=== PATIENT | male | born 1935 | race Caucasian/White ===

== ENCOUNTER 2017-07-03 15:55 | Inpatient (IN) | payer OTHER, MEDICARE ==
[2017-07-03] MEDS ORDERED: CEFAZOLIN 1 GM/DEXTROSE/50 ML BAG IV ONE (17:25)
[2017-07-03 17:36] LABS: % IMMATURE GRANULYOCYTES 0.3 % (0.0-1.1); ABSOLUTE IMMATURE GRANULOCYTES 0.04 10^3/uL (0.00-0.10); ADD DIFF? NO; ADD MORPH? NO; ADD SCAN? NO; ATYPICAL LYMPHOCYTE FLAG 10 (0-99); FRAGMENT RBC FLAG 0 (0-99); HEMATOCRIT 42.2 % (40.0-51.0); HEMOGLOBIN 14.2 g/dL (13.7-17.5); LEFT SHIFT FLG 10 (0-99); LIPEMIA HEMOLYSIS FLAG 80 (0-99); MEAN CELL HEMOGLOBIN 31.2 pg (27.9-34.1); MEAN CELL HEMOGLOBIN CONCENTR. 33.6 g/dL (32.4-36.7); MEAN CELL VOLUME 92.7 fL (81.5-99.8); MEAN PLATELET VOLUME 9.8 fL (8.7-11.7); PLATELET CLUMPS FLAG 0 (0-99); PLATELET COUNT 241 10^3/uL (150-400); RED BLOOD CELL COUNT 4.55 10^6/uL (4.40-6.38); RED CELL DISTRIBUTION WIDTH 15.5 % (11.5-15.2)
[2017-07-03 17:58] LABS: ANION GAP 15 mEq/L (8-16); CALCIUM 8.8 mg/dL (8.5-10.4); CARBON DIOXIDE 21 mEq/l (22-31); CHLORIDE 101 mEq/L (97-110); GLOMERULAR FILTRATION RATE > 60; GLUCOSE 107 mg/dL (70-100); POTASSIUM 3.8 mEq/L (3.5-5.2); SODIUM 137 mEq/L (134-144)
--- NOTE | 2017-07-03 18:12 | GCON ---
[f rep st] CONSULTATION INFECTIOUS DISEASE CONSULTATION. DATE OF CONSULTATION: 07/03/2017 REASON FOR CONSULTATION: Left lower extremity cellulitis. HISTORY OF PRESENT ILLNESS: An 82-year-old male followed regularly in the wound clinic for lower ex tremity venous insufficiency who presents today with increasing pain associated with his toes. In c linic he was found to have significant redness of his toes greater than baseline as well as erythema on his left lower extremity tracking to his groin. Further, he was found to be mildly febrile with a temperature of 100. The patient otherwise, though, was hemodynamically stable. Patient was faustin sferred to the emergency room for further evaluation. The patient was seen in consultation with Dr. Maryam Quinnoes, and it was recommended that patient be transferred to the emergency room for further m anagement of severe cellulitis. PAST MEDICAL HISTORY: BPH, hyperlipidemia, hypothyroidism, melanoma and venous insufficiency of the bilateral lower extremities. PAST SURGICAL HISTORY: Left knee surgery, lumbar surgery, tonsillectomy and adenoidectomy. FAMILY HISTORY: Positive for osteoporosis and sudden . SOCIAL HISTORY: He is . No alcohol. No illicit substances. No tobacco. He is retired. ALLERGIES: To penicillin, unclear reaction, and Cipro. MEDICATIONS: 1. Flomax 0.4 daily. 2. Levothyroxine 75 mcg daily. 3. Zocor 20 mg daily. 4. Gabapentin. 5. Percocet. 6. Oxycodone. 7. Protonix. 8. Tramadol. REVIEW OF SYSTEMS: A complete 10-point review of systems was performed and is negative except as me ntioned in HPI. PHYSICAL EXAMINATION: VITAL SIGNS: Blood pressure is 104/66, heart rate is 78, respiratory rate 16 , saturation 93% on room air. Pulse of 100. GENERAL: Patient is nontoxic appearing. Speaking grayson jeff but appears to be in moderate pain describing 10/10 on the pain scale. HEENT: Moist mucous me mbranes. No obvious dental abnormalities. CARDIOVASCULAR: Regular rate. CHEST: Clear to auscult ation bilaterally. ABDOMEN: Soft, nontender. EXTREMITIES: The patient had erythema of bilateral toes with multiple superficial ulcerations and erythema. His left lower extremity had a large wound on the medial ankle. Pictures were examined, that was 7.5 x 6.5 x 0.1. The patient had erythema i n a stocking distribution as well with sparing the upper calf but subsequently erythema present unde r and around the left knee, tracking up the medial thigh and into the groin. The area was swollen a nd warm to touch. He had palpable pulses. NEUROLOGIC: He is alert and oriented x4. Moving all 4 extremities equally. LABS: Pending at time of dictation. ASSESSMENT AND PLAN: This is a pleasant 82-year-old male with chronic venous insufficiency who pres ents with rapid onset of left lower extremity cellulitis most consistent with disease mediated by St reptococcus. Patient without a history of more resistant organisms and recently responded to Keflex with initial presentation in the Wound Care in 03/2017 with Keflex. I would recommend transfer to the emergency room, initiation of IV cefazolin 1 g IV q.8 h. Elevation of the left lower extremity. Collecting CBC, CMP, blood cultures and elevation of the left lower extremity. The patient with d ressing in place of the left lower extremity that was placed in Wound Care. That should be left in place. Thank you for this consultation. We will continue to follow on a daily basis. /[id number]/MODL
--- NOTE | 2017-07-03 18:14 | EDPHY ---
H & P Time Seen by Provider: 07/03/17 17:06 HPI/ROS: CHIEF COMPLAINT: Left leg cellulitis HISTORY OF PRESENT ILLNESS: 82 year old male followed in the Wound Clinic by Dr. Maryam Quinones presents for evaluation of swollen painful wounds on his toes and left lower extremity warmth , erythema, and streaking. He has ongoing open wounds in bilateral lower extremities and is followed at the Wound Care Clinic. He lives at [facility], and nursing staff noted his bandages needed to be changed several times a day rather than once every other day because of excessive drainage, and recommended he have revaluation at the clinic. Today he developed erythema, warmth and tenderness of the knee and left thigh. He was sent to the emergency department for IV antibiotics and admission. He is followed by infectious disease. No chills, vomiting, shortness of breath, chest pain, or other associated symptoms. REVIEW OF SYSTEMS: Constitutional: No fever, no chills Eyes: No visual changes ENT: No sore throat Respiratory: No cough, no shortness of breath Cardiac: No chest pain Gastrointestinal: No nausea, no vomiting, no abdominal pain Genitourinary: no dysuria Neurological: No headache Psychiatric: No anxiety Past Medical/Surgical History: Hypothyroid, Lower extremity venous insufficiency, Chronic back pain, Hyperlipidemia, BPH, Osteoarthritis of hip and shoulder, Colon cancer, Back surgery L4-L5 Social History: Lives in [place]. No alcohol, tobacco, or drug use. Retired. Smoking Status: Former smoker Physical Exam: General Appearance: Alert, no distress Eyes: Pupils equal and round, no conjunctival pallor or injection ENT, Mouth: Mucous membranes moist Neck: Normal inspection Respiratory: Lungs are clear to auscultation Cardiovascular: Regular rate and rhythm Gastrointestinal: Abdomen is soft and non- tender Neurological: A&O, nonfocal, normal gait Skin: Warm and dry, no rash Extremities: Left leg: Dressing in place from midfoot to proximal lower leg. Above dressing, erythema is noted to knee and medial aspect of inner thigh. Erythema of visible aspect of first, second, and third toes. Right leg: Dressing in place, no erythema warmth or tenderness proximally. Psychiatric: Mood and affect normal Constitutional: Initial Vital Signs Temperature (C) 36.8 C 07/03/17 16:02 Heart Rate 86 07/03/17 16:02 Respiratory Rate 17 07/03/17 16:02 Blood Pressure 97/67 L 07/03/17 16:02 O2 Sat (%) 92 07/03/17 16:02 O2 Delivery Mode Room Air Allergies/Adverse Reactions: Penicillins Allergy (Unknown, Verified 07/03/17 16:01) Home Medications: Medication Instructions Recorded Levothyroxine Sodium [Synthroid] 75 mcg PO DAILY@02/16/13 Tamsulosin HCl [Flomax 0.4 MG (*)] 0.4 mg PO DAILY@02/16/13 Methadone HCl [Methadone 5 mg (*)] 5 mg PO BID@07/03/17 Acetaminophen [Tylenol 325mg (*)] 650 mg PO Q4HRS PRN 07/04/17 Aspirin EC [Aspirin EC 81 mg (*)] 81 mg PO DAILY@07/04/17 Clindamycin HCl [Clindamycin] 600 mg PO AD PRN 07/04/17 Furosemide [Lasix 40 MG (*)] 40 mg PO DAILY@07/04/17 Herbals/Supplements -Info Only 1 each PO DAILY 07/04/17 Magnesium Hydroxide [Milk of 30 ml PO DAILY PRN 07/04/17 Magnesia] Pantoprazole Sodium [Protonix 40mg 40 mg PO DAILY@07/04/17 (*)] Polyethylene Glycol 3350 [Miralax 17 gm PO DAILY PRN 07/04/17 17 gm (*)] Potassium Cl [Klor-Con 20 meq (*)] 20 meq PO DAILY@07/04/17 Sennosides/Docusate Sodium 1 each PO BID PRN 07/04/17 [Senna-Docusate Sodium Tablet] Medical Decision Making ED Course/Re-evaluation: This patient presents with left lower extremity cellulitis likely secondary to a skin tear on his left lower leg. The dressing was not removed, as he was just seen at wound care clinic and a dressing was placed. Ancef 1 g IV given after blood cultures drawn. The patient was stable throughout any does not meet SIRS criteria. Plan to admit for management of cellulitis. Dr. Blood accepts admission. Differential Diagnosis: Differential diagnosis includes though it is not limited to fracture, dislocation, tendon disruption, neurovascular compromise. - Data Points Laboratory Results: Laboratory Results 07/03/17 17:25 07/03/17 17:25 Microbiology Results: MICROBIOLOGY 07/03/17 17:42 Blood Blood Culture - Preliminary 07/03/17 17:25 Blood Blood Culture - Preliminary Medications Given: Aspirin Buffered (Aspirin Ec) 81 mg PO DAILY@08 [facility] Stop: 01/01/18 07:59 Last Admin: 07/05/17 08:33 Dose: 81 mg Enoxaparin Sodium (Lovenox) 40 mg SC DAILY [facility] Stop: 12/31/17 08:59 Last Admin: 07/05/17 08:33 Dose: 40 mg Furosemide (Lasix) 40 mg PO DAILY@08 [facility] Stop: 01/01/18 07:59 Last Admin: 07/05/17 08:34 Dose: 40 mg Cefazolin Sodium/Dextrose (Ancef 1 Gm (Premix)) 50 mls @ 200 mls/hr IV Q8H [facility] PRN Reason: Protocol Stop: 08/02/17 17:59 Last Admin: 07/05/17 10:17 Dose: 50 mls Levothyroxine Sodium (Synthroid) 75 mcg PO DAILY@06 [facility] Stop: 01/01/18 05:59 Last Admin: 07/05/17 05:39 Dose: 75 mcg Methadone HCl (Methadone Hcl) 5 mg PO BID@ [facility] Stop: 07/14/17 19:59 Last Admin: 07/05/17 08:33 Dose: 5 mg Morphine Sulfate (Morphine) 1 - 2 mg IVP Q4HRS PRN PRN Reason: Pain, Severe Unable to Take PO Stop: 07/14/17 00:07 Last Admin: 07/04/17 08:11 Dose: 2 mg Oxycodone HCl (Oxycodone Ir) 5 - 10 mg PO Q4 PRN PRN Reason: Pain, Severe Able to Take PO Stop: 07/13/17 19:09 Last Admin: 07/05/17 00:44 Dose: 10 mg Pantoprazole Sodium (Protonix) 40 mg PO DAILY@08 [facility] Stop: 01/01/18 07:59 Last Admin: 07/05/17 08:34 Dose: 40 mg Potassium Chloride (Klor-Con) 20 meq PO DAILY@08 [facility] Stop: 01/01/18 07:59 Last Admin: 07/05/17 08:34 Dose: 20 meq Senna/Docusate Sodium (Senokot-S) 1 - 2 tab PO BID [facility] PRN Reason: Protocol Stop: 12/30/17 20:59 Last Admin: 07/05/17 08:34 Dose: 2 tab Tamsulosin HCl (Flomax) 0.4 mg PO DAILY@08 [facility] Stop: 01/01/18 07:59 Last Admin: 07/05/17 08:34 Dose: 0.4 mg Discontinued Medications Acetaminophen (Tylenol) 650 mg PO EDNOW ONE Stop: 07/03/17 19:22 Last Admin: 07/03/17 19:24 Dose: 650 mg Cefazolin Sodium/Dextrose (Ancef 1 Gm (Premix)) 50 mls @ 200 mls/hr IV Q8HRS [facility] PRN Reason: Protocol Stop: 08/02/17 17:59 Last Admin: 07/03/17 18:08 Dose: 50 mls Oxycodone HCl (Oxycodone Ir) 5 - 10 mg PO Q6 PRN PRN Reason: Pain, Severe Able to Take PO Stop: 07/04/17 00:09 Last Admin: 07/03/17 21:51 Dose: 10 mg Departure - Departure Disposition: [facility] In[facility] Acute Clinical Impression: Cellulitis Qualifiers: Site of cellulitis: extremity Site of cellulitis of extremity: lower extremity Laterality: left Qualified Code(s): L03.116 - Cellulitis of left lower limb Condition: Fair Report Scribed for: Jodee Giles Report Scribed by: Eli Simmons Date of Report: 07/03/17 Time of Report: 19:10 Physician Review and Approval Statement: 07/03/17 19:10 Portions of this note were transcribed by a medical photographer. I personally performed a history, physical exam, medical decision making, and confirmed accuracy of information the transcribed note.
[2017-07-03] MEDS ORDERED: oxyCODONE IR 5 MG TAB PO PRN (19:10)
[2017-07-03] MEDS ORDERED: ACETAMINOPHEN 325 MG TAB PO PRN (19:10)
[2017-07-03] MEDS ORDERED: ONDANSETRON 4 MG/2 ML VIAL IVP PRN (19:10)
[2017-07-03] MEDS ORDERED: BISACODYL 10 MG SUPP PR PRN (19:11)
[2017-07-03] MEDS ORDERED: LACTULOSE 20 GM/30 ML UDCUP PO PRN (19:11)
[2017-07-03] MEDS ORDERED: POLYETHYLENE GLYCOL 3350 17 GM PKT PO PRN (19:11)
[2017-07-03] MEDS ORDERED: MAGNESIUM HYDROXIDE 30 ML UDCUP PO PRN (19:11)
[2017-07-03] MEDS ORDERED: ACETAMINOPHEN 325 MG TAB PO ONE (19:21)
--- NOTE | 2017-07-03 19:27 | GHP ---
[f rep st] HISTORY AND PHYSICAL DATE OF ADMISSION: 07/03/2017 CHIEF COMPLAINT: Left lower extremity redness. HISTORY OF PRESENT ILLNESS: This is an 82-year-old male, who is followed regularly at the wound cli [facility] for lower extremity venous insufficiency, who presented today with worsening pain in his left to es as well as redness and swelling of his left knee to his groin. He denies any fevers, but was fou nd to have a temperature of 100 degrees Fahrenheit. He was seen earlier today at the wound clinic, and had also seen Dr. Ramirez before being transferred to the emergency department for further manage ment. PAST MEDICAL HISTORY: 1. BPH. 2. Hyperlipidemia. 3. Melanoma. 4. Venous insufficiency. 5. Hypothyroidism. PAST SURGICAL HISTORY: 1. Left knee surgery. 2. Lumbar back surgery. 3. Tonsillectomy and adenoidectomy. HOME MEDICATIONS: Reviewed. Refer to [facility] for details. ALLERGIES: Penicillin and Cipro. SOCIAL HISTORY: He is and lives at [facility]. He denies any alcohol, tobacco , or illicit drug use. FAMILY HISTORY: Significant for osteoporosis and sudden . REVIEW OF SYSTEMS: Comprehensive 10-point review of systems was done and is negative, except for as mentioned in the HPI. PHYSICAL EXAM: VITAL SIGNS: Blood pressure 130/79, pulse of 74, respiratory rate 18, O2 saturation 94% on room air, temperature 38. GENERAL: In no acute distress. HEAD: Normocephalic, atraumatic . EYES: PERRLA. Sclerae anicteric. MOUTH: Moist mucous membranes. NECK: Supple. No lymphaden opathy. CARDIOVASCULAR: S1-S2. No JVD. No lower extremity edema. PULMONARY: Lungs are clear. No wheezes, rales, or rhonchi. ABDOMEN: Soft, nontender, nondistended. No guarding or rebound ten derness. Normoactive bowel sounds. EXTREMITIES: No clubbing or cyanosis. NEURO: Cranial nerves 2-12 grossly intact. No focal motor or sensory deficits. SKIN: There is erythema over his left to es. There is a clean, dry dressing in place, that I did not take down, over his foot and lower leg. He does have some erythema at his calf tracking up towards his knee and into his groin. He does n ot have pain with passive or active range of motion of the knee. DIAGNOSTICS: WBC is 11.46, hemoglobin 14.2, hematocrit 42.2, platelets 241. Venous lactic acid 1.6 , sodium 137, potassium 3.8, chloride 101, CO2 21, BUN 16, creatinine 1, glucose 107. ASSESSMENT: This is an 82-year-old male, presenting with: 1. Left lower extremity cellulitis. 2. History of chronic venous insufficiency. PLAN: The patient will be admitted to the medical-surgical floor, where he will be continued on cef azolin 1 g IV q.8 hours as well as elevation of his left lower extremity. ID will be consulted to destiney currie while he is in the hospital. The patient will be carefully monitored for signs and symp toms of severe sepsis and septic shock. The patient is high risk for VTE and will be placed on low molecular weight heparin while in the [facility] pital. /[id number]/MODL
[2017-07-03] MEDS: SENNOSIDES/DOCUSATE SODIUM TAB PO SCH (21:51)
[2017-07-04] MEDS: oxyCODONE IR 5 MG TAB PO PRN ×2 (01:19→08:11)
[2017-07-04 05:06] LABS: % IMMATURE GRANULYOCYTES 0.4 % (0.0-1.1); ABSOLUTE IMMATURE GRANULOCYTES 0.03 10^3/uL (0.00-0.10); ADD DIFF? NO; ADD MORPH? NO; ADD SCAN? NO; ATYPICAL LYMPHOCYTE FLAG 10 (0-99); FRAGMENT RBC FLAG 0 (0-99); HEMATOCRIT 35.8 % (40.0-51.0); HEMOGLOBIN 11.8 g/dL (13.7-17.5); LEFT SHIFT FLG 0 (0-99); LIPEMIA HEMOLYSIS FLAG 80 (0-99); MEAN CELL HEMOGLOBIN 30.8 pg (27.9-34.1); MEAN CELL VOLUME 93.5 fL (81.5-99.8); MEAN PLATELET VOLUME 9.9 fL (8.7-11.7); PLATELET CLUMPS FLAG 0 (0-99); PLATELET COUNT 204 10^3/uL (150-400); RED BLOOD CELL COUNT 3.83 10^6/uL (4.40-6.38); RED CELL DISTRIBUTION WIDTH 15.3 % (11.5-15.2)
[2017-07-04 05:25] LABS: ANION GAP 7 mEq/L (8-16); CALCIUM 8.2 mg/dL (8.5-10.4); CARBON DIOXIDE 25 mEq/l (22-31); CHLORIDE 103 mEq/L (97-110); CREATININE 0.9 mg/dL (0.7-1.3); GLOMERULAR FILTRATION RATE > 60; GLUCOSE 93 mg/dL (70-100); POTASSIUM 3.7 mEq/L (3.5-5.2); SODIUM 135 mEq/L (134-144)
[2017-07-04] MEDS: ENOXAPARIN 40 MG/0.4 ML SYR SC SCH (10:13)
[2017-07-04] MEDS: SENNOSIDES/DOCUSATE SODIUM TAB PO SCH ×2 (10:14→21:33)
--- NOTE | 2017-07-04 10:29 | HOSPPROG ---
Hospitalist Progress Note Assessment/Plan: #Acute Left LE cellulitis: -cont Cefazolin -ID is following #Chronic bilateral LE insufficiency -dressing in place -will obtain wound consult #HLD: #Hypothyroidism Plan: -Cefazolin -ID to see -Wound care -Pain mgmt -f/u BCx -Lovenox for DVT proph -complete med rec once meds have been confirmed. Not available as of 929 this morning -Dispo: cont inpatient Subjective: Feels better. Legs are wrapped. First encounter with this patient. No CP or SOB. Daughter at bedside. Objective: Vital Signs Temp Pulse Resp BP Pulse Ox 36.8 C 54 L 18 123/71 H 94 07/04/17 07:53 07/04/17 07:53 07/04/17 07:53 07/04/17 07:53 07/04/17 07:53 Laboratory Results 07/04/17 04:44 07/04/17 04:44 07/03/17 07/04/17 07/05/17 05:59 05:59 05:59 Intake Total 825 Balance 825 - Physical Exam Constitutional: no apparent distress, appears nourished, not in pain Eyes: PERRL Ears, Nose, Mouth, Throat: moist mucous membranes, hearing normal, ears appear normal, no oral mucosal ulcers Cardiovascular: regular rate and rhythym, No JVD Respiratory: no respiratory distress, clear to auscultation Gastrointestinal: normoactive bowel sounds, soft, non-tender abdomen, no palpable masses Skin: warm Neurologic: AAOx3, No facial droop Psychiatric: interacting appropriately, not anxious, not encephalopathic, thought process linear ICD10 Worksheet Patient Problems: Problems Problem Status Onset Cellulitis Acute Anemia, iron deficiency Acute
[2017-07-04] MEDS ORDERED: POLYETHYLENE GLYCOL 3350 17 GM PKT PO PRN (10:30)
[2017-07-04] MEDS ORDERED: SENNOSIDES/DOCUSATE SODIUM TAB PO PRN (10:30)
--- NOTE | 2017-07-04 15:56 | PCMIDPN ---
Assessment/Plan: Assessment/Plan: * Left lower extremity cellulitis with chronic venous insufficiency and ulceration: Significant improvement in cellulitis with IV cefazolin. Still with some patchy erythema over thigh and below knee primarily consistent with venous insufficiency. Small pustule over base of great toe which resolved when prepped with Hibiclens (cultures could not be obtained). Continue cefazolin. Emphasized elevation of left lower extremity. Continued compression of left lower extremity. Anticipate potential change to oral antibiotic therapy tomorrow based on clinical improvement. 07/04/17 15:52 Subjective: Patient with decreased erythema over left thigh. Son notes looks significantly improved. Objective: Vital Signs Temp Pulse Resp BP Pulse Ox 36.8 C 71 16 120/73 91 L 07/04/17 12:12 07/04/17 12:12 07/04/17 12:12 07/04/17 12:12 07/04/17 12:12 Laboratory Results 07/04/17 04:44 07/04/17 04:44 07/03/17 07/04/17 07/05/17 05:59 05:59 05:59 Intake Total 825 Balance 825 Cefazolin # 1 Blood cultures x2 pending - Physical Exam General Appearance: alert, no apparent distress EENT: No scleral icterus Extremities: inflammation (Left thigh medially with patchy erythema; minimal induration; nontender; erythema below knee consistent with venous insufficiency ; crusting between several toes with ulceration; small pustule below base of great toe which when cleaned with Hibiclens unroofed itself) Lymphatic: other (No left thigh lymphangitis) ICD10 Worksheet Patient Problems: Problems Problem Status Onset Cellulitis Acute Anemia, iron deficiency Acute
--- NOTE | 2017-07-04 20:29 | SOAPPROG ---
SOAP Progress Note Assessment/Plan: Assessment: 82 yo with chronic venous insufficiency s/p ablation Wound on left medial leg and cellulitus - MUCH improved from yesterday Increased pain at bilateral toes with wounds Wound care TOSHIA/PVR if will tolerate Could have mixed arterial and venous disease I will not see daily but am available this weekend if needed Plan: 07/04/17 20:27 7 Objective: Vital Signs Temp Pulse Resp BP Pulse Ox 36.7 C 59 L 16 140/81 H 95 07/04/17 19:56 07/04/17 19:56 07/04/17 19:56 07/04/17 19:56 07/04/17 19:56 Laboratory Results 07/04/17 04:44 07/04/17 04:44 07/03/17 07/04/17 07/05/17 05:59 05:59 05:59 Intake Total 825 700 Output Total 2 Balance 825 748 ICD10 Worksheet Patient Problems: Problems Problem Status Onset Cellulitis Acute Anemia, iron deficiency Acute
[2017-07-04] MEDS: METHADONE HCL 5 MG TAB PO SCH (21:33)
[2017-07-05] MEDS: oxyCODONE IR 5 MG TAB PO PRN ×2 (00:44→23:41)
[2017-07-05] MEDS: LEVOTHYROXINE 75 MCG TAB PO SCH (05:39)
[2017-07-05 05:51] LABS: ANION GAP 12 mEq/L (8-16); CALCIUM 8.4 mg/dL (8.5-10.4); CARBON DIOXIDE 23 mEq/l (22-31); CHLORIDE 102 mEq/L (97-110); CREATININE 0.8 mg/dL (0.7-1.3); GLOMERULAR FILTRATION RATE > 60; GLUCOSE 81 mg/dL (70-100); POTASSIUM 3.8 mEq/L (3.5-5.2); SODIUM 137 mEq/L (134-144)
[2017-07-05] MEDS: METHADONE HCL 5 MG TAB PO SCH ×2 (08:33→21:31)
[2017-07-05] MEDS: ENOXAPARIN 40 MG/0.4 ML SYR SC SCH (08:33)
[2017-07-05] MEDS: ASPIRIN EC 81 MG TAB PO SCH (08:33)
[2017-07-05] MEDS: TAMSULOSIN HCL 0.4 MG CAP PO SCH (08:34)
[2017-07-05] MEDS: SENNOSIDES/DOCUSATE SODIUM TAB PO SCH ×2 (08:34→21:31)
[2017-07-05] MEDS: POTASSIUM CL 20 MEQ TAB PO SCH (08:34)
[2017-07-05] MEDS: FUROSEMIDE 40 MG TAB PO SCH (08:34)
[2017-07-05] MEDS: PANTOPRAZOLE SODIUM 40 MG TAB PO SCH (08:34)
[2017-07-05] MEDS ORDERED: Herbals/Supplements -Info Only PO SCH (09:00)
--- NOTE | 2017-07-05 11:12 | HOSPPROG ---
Hospitalist Progress Note Assessment/Plan: 82 yo male with hx of chronic venous insufficiency admitted for acute LLE cellulitis involving the Left thigh down and worsening bilateral extremities wounds. On IV Cefazolin with some improvement. Toe wounds appear to be impairing his ability to ambulate, but he and his son report that this is chronic. #Acute Left LE cellulitis: -cont Cefazolin -ID is following. May transition to oral abx soon #Chronic bilateral LE insufficiency with bilateral wounds -dressing in place -surgery and wound following #HLD: #Hypothyroidism Plan: -Cont Cefazolin -ID reccs -Wound care -Pain mgmt -f/u BCx: no growth thus far -Lasix daily -Lovenox for DVT proph -PT -Dispo: cont inpatient, possible discharge soon. Once medically stable, wants to discharge back to assisted living. D/W pt and son who is present at bedside. Subjective: Feels better. Still weak, but this is near baseline. No CP or SOB. NO N/V Objective: Vital Signs Temp Pulse Resp BP Pulse Ox 36.6 C 69 18 121/80 H 93 07/05/17 07:29 07/05/17 07:29 07/05/17 07:29 07/05/17 07:29 07/05/17 07:29 Laboratory Results 07/04/17 04:44 07/05/17 04:52 07/04/17 07/05/17 07/06/17 05:59 05:59 05:59 Intake Total 825 800 Output Total 202 Balance 825 598 - Physical Exam Constitutional: no apparent distress, not in pain, chronically ill appearing Eyes: PERRL, anicteric sclera, EOMI Ears, Nose, Mouth, Throat: moist mucous membranes, No dry mucous membranes Cardiovascular: regular rate and rhythym, No JVD Respiratory: no respiratory distress, clear to auscultation Gastrointestinal: normoactive bowel sounds, soft, non-tender abdomen Skin: warm, other (erythema around left medial thigh appears better, dressing in place bilaterally calf and down) Musculoskeletal: generalized weakness Neurologic: AAOx3 Psychiatric: interacting appropriately, not anxious, not encephalopathic ICD10 Worksheet Patient Problems: Problems Problem Status Onset Cellulitis Acute Anemia, iron deficiency Acute
--- NOTE | 2017-07-05 13:04 | PCMIDPN ---
Assessment/Plan: LLE cellulitis - portal of entry chronic LE wounds. Suspect streptococcus. Significant improvement today. --awaiting arterial studies --DC tomorrow on Keflex 500mg PO TID, 7 day supply --continued cefazolin IV overnight --elevation Micro 07/03 blood cx (2) NGTD Subjective: patient without c/o today no pain no diarrhea Objective: Vital Signs Temp Pulse Resp BP Pulse Ox 36.3 C 72 16 115/78 93 07/05/17 11:47 07/05/17 11:47 07/05/17 11:47 07/05/17 11:47 07/05/17 11:47 Laboratory Results 07/04/17 04:44 07/05/17 04:52 07/04/17 07/05/17 07/06/17 05:59 05:59 05:59 Intake Total 825 800 Output Total 202 Balance 825 598 - Physical Exam General Appearance: alert, no apparent distress Respiratory: No accessory muscle use Neck: supple Cardiac/Chest: regular rate, rhythm Extremities: erythema (LLE stocking distribution and faint erythema remains tracking up medial thigh) Skin: No rash Neuro/Psych: alert, normal mood/affect, oriented x 3 - Time Spent With Patient Time Spent with Patient: greater than 35 minutes Time Spent with Patient: Greater than 35 minutes spent on this patients care, greater than 50% of time spent counseling, educating, and coordinating care regarding the above mentioned plan. ICD10 Worksheet Patient Problems: Problems Problem Status Onset Cellulitis Acute Anemia, iron deficiency Acute
--- NOTE | 2017-07-05 16:44 | SOAPPROG ---
SOAP Progress Note Assessment/Plan: Assessment: 82 yo with chronic venous insufficiency s/p ablation Wound on left medial leg and cellulitus - MUCH improved from yesterday Increased pain at bilateral toes with wounds Wound care TOSHIA and PVR surprisingly good. TOSHIA 1.1 on each side and decent waveforms. Doubt any arterial contribution Can DC from my standpoint and follow up in wound healing center next week I will not see daily but am available this weekend if needed Plan: 07/04/17 20:27 7 07/05/17 16:42 Objective: Vital Signs Temp Pulse Resp BP Pulse Ox 36.4 C 62 15 121/79 H 94 07/05/17 15:43 07/05/17 15:43 07/05/17 15:43 07/05/17 15:43 07/05/17 15:43 Laboratory Results 07/04/17 04:44 07/05/17 04:52 07/04/17 07/05/17 07/06/17 05:59 05:59 05:59 Intake Total 825 800 Output Total 202 Balance 825 598 ICD10 Worksheet Patient Problems: Problems Problem Status Onset Cellulitis Acute Anemia, iron deficiency Acute
--- NOTE | 2017-07-05 17:58 | WOCRNPDOC ---
WOCRN Advanced Assessment Note - Skin Integrity Problem, Advanced Assess Left Lower Leg Dressing Type: Open to Air Exudate Amount: None Exudate Characteristic(s): None Integumentary Issue Intervention: Dressing Applied (Optilock dressing x2, 2- layer compression wrap) Elana Wound Tissue: Erythema, Swollen, Venous Dermatitis Elana Wound Swelling: Mild Wound Bed Color: Red Wound Bed Constitution: Smooth Tissue (non-granulating) Wound Edges: Irregular Skin Integrity Problem Comment: Two wounds noted to medial aspect of LLE. Proximally, there is a healing skin tear w/ epithelial islands scattered throughout wound bed. Presently site is not exudative. Distally, there is a venous stasis wound w/ a dry, non-granulating wound bed. No apparent necrosis in either wound. There is mild edema throughout this extremity, +2 DP pulse. Venous dermatitis throughout, extending to foot, consistent w/ venous stasis. After discussion w/ Dr. Ramirez, decision was made to apply the 2-layer compression wrap that patient is accustomed to in the outpatient setting, with the understanding that nursing and physicians will not remove this dressing for the remainder of patient's stay. Per the [facility], he has a follow up appointment for next Thursday 07/12. Applied two Optilock dressings over both wounds, and applied 2-layer wrap w/ assistance of information technology advisor Paavo. Right Toe Dressing Type: Open to Air Exudate Amount: None Exudate Characteristic(s): None Integumentary Issue Intervention: Dressing Applied Elana Wound Tissue: Erythema, Swollen, Dry Elana Wound Swelling: Mild Wound Bed Color: Red Wound Bed Constitution: Smooth Tissue (red, non-granulating), Dried Exudate Skin Integrity Problem Comment: Wounds noted to dorsal aspect of patient's R 3rd and 4th toes, w/ dry, non-granulating tissue. Moderate swelling and erythema noted in both these digits, and patient c/o intense pain to these and neighboring toes. Applied foam dressing to protect wounds, and wrapped lightly w / Lizette. Patient has f/u appt. w/ [facility] next Saturday. Left Second Toe Dressing Type: Open to Air Exudate Amount: None Exudate Characteristic(s): None Integumentary Issue Intervention: Dressing Applied Elana Wound Tissue: Erythema, Swollen Elana Wound Swelling: Moderate Wound Bed Color: Red Wound Bed Constitution: Smooth Tissue (red, non-granulating) Site Odor: None Skin Integrity Problem Comment: Linear, dry, wound bed noted to dorsal aspect of L second toe. Venous dermatitis throughout this extremity, extending up through elana-wound tissue. Site is very tender, though patient reports that pain is diminishing since admission. Protective foam dressing placed over wound , secure w/ Lizette over forefront of the L foot.
[2017-07-06] MEDS: oxyCODONE IR 5 MG TAB PO PRN (01:48)
[2017-07-06] MEDS: LEVOTHYROXINE 75 MCG TAB PO SCH (04:37)
[2017-07-06 07:48] VITALS: BP 130/78; PULSE 62; RESP 16; TEMP 97.6; O2SAT 91
[2017-07-06] MEDS: ENOXAPARIN 40 MG/0.4 ML SYR SC SCH (08:05)
[2017-07-06] MEDS: ASPIRIN EC 81 MG TAB PO SCH (08:05)
[2017-07-06] MEDS: POTASSIUM CL 20 MEQ TAB PO SCH (08:06)
[2017-07-06] MEDS: FUROSEMIDE 40 MG TAB PO SCH (08:07)
[2017-07-06] MEDS: METHADONE HCL 5 MG TAB PO SCH (08:07)
[2017-07-06] MEDS: TAMSULOSIN HCL 0.4 MG CAP PO SCH (08:07)
[2017-07-06] MEDS: PANTOPRAZOLE SODIUM 40 MG TAB PO SCH (08:07)
[2017-07-06] MEDS: SENNOSIDES/DOCUSATE SODIUM TAB PO SCH (08:12)
--- NOTE | 2017-07-06 08:32 | PCMIDPN ---
Assessment/Plan: LLE cellulitis/lymphangitis - portal of entry chronic LE wounds. Suspect streptococcus. Complete resolution of erythema on LUE --DC today on Keflex 500mg PO TID, 7 day supply --do not remove LLE dressing --patient will follow up in wound healing center [facility] 07/03 blood cx (2) NGTD Subjective: feeling well, no c/o Objective: Vital Signs Temp Pulse Resp BP Pulse Ox 36.4 C 62 16 130/78 H 91 L 07/06/17 07:47 07/06/17 07:47 07/06/17 07:47 07/06/17 07:47 07/06/17 07:47 Laboratory Results 07/04/17 04:44 07/05/17 04:52 07/05/17 07/06/17 07/07/17 05:59 05:59 05:59 Intake Total 800 400 Output Total 202 400 Balance 598 0 PE Nontoxic sitting in bed NAD Skin no rash B LE less swelling than admit LLE dressing in place lower leg; upper leg complete resolution of lymphangitis ICD10 Worksheet Patient Problems: Problems Problem Status Onset Cellulitis Acute Anemia, iron deficiency Acute
--- NOTE | 2017-07-06 09:54 | PDIAF ---
- Diagnosis Code Status: Do Not Resuscitate - Medication Management Discharge Medications: Medications to Continue on Transfer Levothyroxine Sodium [Synthroid] 75 mcg PO DAILY@02/16/13 [Last Taken ] Tamsulosin HCl [Flomax 0.4 MG (*)] 0.4 mg PO DAILY@02/16/13 [Last Taken 02/22] Methadone HCl [Methadone 5 mg (*)] 5 mg PO BID@07/03/17 [Last Taken Unknown] Acetaminophen [Tylenol 325mg (*)] 650 mg PO Q4HRS PRN 07/04/17 [Last Taken Unknown] Aspirin EC [Aspirin EC 81 mg (*)] 81 mg PO DAILY@07/04/17 [Last Taken Unknown ] Furosemide [Lasix 40 MG (*)] 40 mg PO DAILY@07/04/17 [Last Taken Unknown] Herbals/Supplements -Info Only 1 each PO DAILY 07/04/17 [Last Taken Unknown] Magnesium Hydroxide [Milk of Magnesia] 30 ml PO DAILY PRN 07/04/17 [Last Taken Unknown] Pantoprazole Sodium [Protonix 40mg (*)] 40 mg PO DAILY@07/04/17 [Last Taken Unknown] Polyethylene Glycol 3350 [Miralax 17 gm (*)] 17 gm PO DAILY PRN 07/04/17 [Last Taken Unknown] Potassium Cl [Klor-Con 20 meq (*)] 20 meq PO DAILY@07/04/17 [Last Taken Unknown] Sennosides/Docusate Sodium [Senna-Docusate Sodium Tablet] 1 each PO BID PRN 09/10 [Last Taken Unknown] Cephalexin [Keflex (*)] 500 mg PO TID #21 cap 07/06/17 [Last Taken Unknown] Discharge Medications: Refer to the Discharge Home Medication list for PRN reason. - Orders Services needed: Home Care, Registered Nurse, Physical Therapy, Occupational Therapy Home Care Face to Face: I certify that this patient was under my care and that I had the required [id number] encounter meeting the encounter requirements on the discharge day. My findings support the fact that the patient is homebound as defined in CMS Chapter 7 Medicare Benefits Manual 30.1.1, The condition of the patient is such that there exists a normal inability to leave home and consequently, leaving home would require a considerable and taxing effort. Diet Recommendation: no restrictions on diet Wound Care Instructions: Dressing change for 2nd,3rd, and 4th toes on R foot, and 2n toe on L foot: to be done every 3 days and as needed. 1) cleanse w/ NS and gauze. 2) gently apply skin prep to yodit-wound skin on 3rd and 4th toes on R foot; yodit-wound on 2nd toe on L foot. 3) cover wounds w/ Mepilex foam dressing (or similar), sticky side facing down. 4) secure w/ Kerlix or Lizette over the forefront of foot. Patient has a 2-layer compression wrap applied to LLE, w/ two Optilock dressings underneath, covering wounds. This wrap is to be left in place until patient's next outpatient wound clinic appointment on Saturday , 07/12. May put black, nylon stocking over compression wrap when patient DC's; it is located in the 3M Lite compression wrap box in patient's room. VAIBHAV Pepper - Follow Up Care Current Providers and Referrals: NURYS STYLES [Other] - As per Instructions
--- NOTE | 2017-07-06 18:05 | GDS ---
[f rep st] DISCHARGE SUMMARY DISCHARGE DIAGNOSES: 1. Acute left lower extremity cellulitis. 2. Lower extremity venous insufficiency, status post venous ablation. 3. Lower extremity venous insufficiency wounds. HISTORY: The patient is an 82-year-old male, followed regularly at the [facility] for lower extremity venous insufficiency. He presented with redness and swelling of his toes, knees to groin. He was diagnosed with cellulitis, and treated with IV antibiotics. Portal of entry is his chronic lower extremity wounds. Strep is the most likely causative organism. A complete resolution of alfonso thema prior to discharge. Infectious Disease recommended Keflex 500 mg p.o. three times daily for 7 days. At discharge he will follow up closely with the [facility] Care [facility] regarding his lower extrem ity wound care management. DISCHARGE MEDICATIONS: Please see computer record for full detailed list. NEW MEDICATIONS: Keflex 500 mg p.o. three times daily x7 days. ADDITIONAL DISCHARGE INSTRUCTIONS: 1. [facility] refer to [facility] for specific wound care instructions at discharge. 2. Outpatient wound clinic appointment on July 12. 3. Home Health arranged for PT, OT, VNS. Greater than 30 minutes of time was spent arranging this discharge. The patient was seen and examin ed by me on the day of discharge. /[id number]/MODL
== END 2017-07-06 13:07 | disposition home health service (06) | DRG 603 ==
LOC: F1N 20:02
PROVIDERS: ADMIT Family Medicine; ATTEND Family Medicine
DX: L03.116 Cellulitis of left lower limb (principal); I87.2 Venous insufficiency (chronic) (peripheral); E03.9 Hypothyroidism, unspecified; M54.9 Dorsalgia, unspecified; M16.10 Unilateral primary osteoarthritis, unspecified hip; M19.019 Primary osteoarthritis, unspecified shoulder; E78.5 Hyperlipidemia, unspecified; Z85.038 Personal history of other malignant neoplasm of large intestine; Z87.891 Personal history of nicotine dependence
CPT/HCPCS: 96374; 97116-GP; 97161-GP; 97166-GO; 97535-GO; G8978-GP-CI; G8979-GP-CI; G8980-GP-CI; G8987-GO-CI; G8988-GO-CI; G8989-GO-CI; J0690; J1650

== ENCOUNTER → 2017-08-26 | Outpatient (CLI) | payer OTHER, MEDICARE | LOC: FIMAGING 16:12 | PROVIDERS: ATTEND Internal Medicine Infectious Disease | DX: I82.812 Embolism and thrombosis of superficial veins of left lower extremity (principal); R60.0 Localized edema; R59.0 Localized enlarged lymph nodes ==

== ENCOUNTER 2018-03-02 20:12 | Inpatient (IN) | payer OTHER, MEDICARE ==
--- NOTE | 2018-03-02 20:39 | EDPHY ---
General - History Smoking Status: Former smoker Time Seen by Provider: 03/02/18 20:23 Narrative: CHIEF COMPLAINT: Fever, lower extremity wounds HISTORY OF PRESENT ILLNESS: Patient presents with son with reports of fever. Patient began to feel ill earlier this evening at his assisted living facility. He has no cough, sore throat, congestion, but he did have a runny nose over the past 2 days. No chest pain or shortness of breath. No abdominal pain or urinary complaints. Their concern is he has complicated lower extremities skin changes, and he is undergoing weekly wound care. The assisted living facility was concern for infection. He has no trauma or injury. He was reportedly febrile at 101.8 just prior to arrival. No other associated complaints or modifying factors. REVIEW OF SYSTEMS: Ten systems reviewed and are negative unless otherwise noted in the HPI PCP: Dr. Feliciano SPECIALISTS: [facility] PAST MEDICAL HISTORY: Hypothyroid, chronic back pain, dyslipidemia, osteoarthritis, colon cancer, chronic lower extremity wounds PAST SURGICAL HISTORY: Orthopedic and spine surgeries remotely SOCIAL HISTORY: Never smoker. No drug or alcohol use. 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 No wheezing or crackles. Cardiovascular: Tachycardic rate. Regular them. Gastrointestinal: Abdomen is soft and nontender. No tympany rigidity. Back: non-tender, no bony abnormalities Neurological: GCS 15. A&O, nonfocal, normal gait Skin: Warm and dry, chronic skin changes of lower extremities consistent with venous stasis and pressure/stasis ulcers. No obvious cellulitis or abscess. Extremities: Minimal tenderness of the areas of wound lower extremities. Range of motion of the lower extremities symmetric. Range of motion upper extremities symmetric. Psychiatric: Mood and affect normal DIFFERENTIAL DIAGNOSES: Including but not limited to sepsis, cellulitis, MRSA, staph infection, pneumonia, influenza, bronchitis, pneumonitis, UTI MDM: 8:35 p.m. Fever with no specific system complaints. Mild body aches but no cough, sore throat, urinary complaints, chest pain or abdominal pain. Patient is not febrile here but his temperature is slightly elevated. His heart rate is 105. Respiratory rate is 20. His blood pressure is stable 120/83. Patient does have chronic wounds of the lower extremities bilaterally. His assisted living facility was concerned that these may be infected. I have ordered laboratory studies including blood cultures, lactic acid, chest x-ray, flu swab. I have notified Dr. Hatfield. 8:40 p.m. Case discussed with Dr. Quinones for the chronic wounds. She will evaluate the patient. 8:[address] Quinones has evaluated the patient. Please see her consult note for further details. She feels that infection is unlikely of his lower extremity wound. 9:10 p.m. Patient's lactic acid is elevated 2.7. Dr. Hatfield notified, and we have reviewed the chest x-ray together. I do not appreciate any obvious pneumonia. Still no obvious source for infection at this time. 9:40 p.m. Patient has been evaluated by Dr. Hatfield personally. At this point he was febrile during examination. We do not yet have source but there is possibility of lower extremities skin infection due to his chronic wounds. Dr. Hatfield is order antibiotics for this. We will provide 2 L IV fluid resuscitation recheck his lactic acid. 9:45 p.m. This case discussed with hospitalist Dr. Ramirez He will admit the patient to his service. Admitted in stable condition. Urinalysis pending. Influenza test 10:00 p.m. Influenza test is negative. I have added a Respiratory pathogen panel to the existing swab 10:15 p.m. Urinalysis is negative for infection. He still receiving his IV fluid resuscitation and the repeat lactic acid is being drawn at this time. 10:40 p.m. Repeat lactic acid has improved to 2.0. At this time he is ready for transportation to the floor. Continue IV fluid resuscitation. He is admitted in stable condition. SUPERVISION: Patient was evaluated and examined in conjunction with my secondary supervising physician as documented. We have both examined the patient. (Lloyd Urias) Medical Decision Making: Independent physician evaluation: I evaluated and participated in the management of the patient. I also evaluated the patient independently. My co-signature indicates that I have reviewed this chart and I agree with the findings and plan of care as documented. My personal H&P findings include: The patient presents the ED for evaluation of a 1 day history of fever and shaking chills. The patient does have a history of chronic lower extremity cellulitis and ulcers. He is under the care of the [facility] Care Clinic. He has not been on recent antibiotics. The patient reports he has had a slight dry nonproductive cough. He denies any abdominal pain, vomiting or diarrhea. The patient denies dysuria or prior history of UTIs. Physical exam: General Appearance: Alert, elderly male, no acute distress Eyes: Pupils equal and round no pallor or injection ENT, Mouth: Mucous membranes moist Respiratory: Faint rhonchi bilateral lung bases Cardiovascular: Tachycardic Gastrointestinal: Abdomen is soft and nontender, no masses, bowel sounds normal Neurological: 5/5 strength all 4 extremities Skin: Cellulitic changes and chronic stasis/ulcers noted to bilateral lower extremities Musculoskeletal: Neck is supple nontender Extremities: symmetrical, full range of motion Psychiatric: Patient is oriented X 3, there is no agitation ED course: Patient's temperature is 38.1 degrees on my check. The patient is tachycardic and has leukocytosis. The patient does have lower extremity cellulitis and ulcerations. Given his history of fever and shaking chills I am concerned about the possibility of bacteremia from a skin source. The patient did have blood cultures x2 obtained. He received 2 L of normal saline. The patient was given 1 g of vancomycin and ceftriaxone for cellulitis/possible bacteremia. Patient does meet criteria for severe sepsis with an elevated venous lactate of 2.7 + leukocytosis+fever +tachycardia. A repeat venous lactate has been ordered in the emergency department. The patient will be admitted to the hospitalist service. (Ezequiel Hatfield) - Diagnostics Imaging Results: Imaging Impressions Chest X-Ray 03/02/18 20:39 Impression: 1. Moderate hiatal hernia. 2. No definite pneumonia. - Objective Vital Signs: Initial Vital Signs Temperature (C) 37.3 C 03/02/18 20:14 Heart Rate 105 H 03/02/18 20:14 Respiratory Rate 20 03/02/18 20:14 Blood Pressure 121/83 H 03/02/18 20:14 O2 Sat (%) 94 03/02/18 20:14 O2 Delivery Mode Room Air Allergies/Adverse Reactions: Penicillins Allergy (Unknown, Verified 03/02/18 20:14) Home Medications: Medication Instructions Recorded Levothyroxine Sodium [Synthroid] 75 mcg PO DAILY@06 03/25/13 Tamsulosin HCl [Flomax 0.4 MG (*)] 0.4 mg PO DAILY@02/16/13 Acetaminophen [Tylenol 325mg (*)] 650 mg PO Q4HRS PRN 07/04/17 Aspirin EC [Aspirin EC 81 mg (*)] 81 mg PO DAILY@07/04/17 Furosemide [Lasix 40 MG (*)] 40 mg PO DAILY@07/04/17 Herbals/Supplements -Info Only 1 each PO DAILY 07/04/17 Magnesium Hydroxide [Milk of 30 ml PO DAILY PRN 07/04/17 Magnesia] Pantoprazole Sodium [Protonix 40mg 40 mg PO DAILY@07/04/17 (*)] Polyethylene Glycol 3350 [Miralax 17 gm PO DAILY PRN 07/04/17 17 gm (*)] Potassium Cl [Klor-Con 20 meq (*)] 20 meq PO DAILY@07/04/17 Sennosides/Docusate Sodium 1 each PO BID PRN 07/04/17 [Senna-Docusate Sodium Tablet] Diclofenac Sodium 1% [Voltaren Gel 2 gm TP BID PRN 03/02/18 (*)] Ibuprofen [Motrin (*)] 200 mg PO Q8HRS PRN 03/02/18 Nystatin [Mycostatin Cream (RX)] 1 patricia TP TID PRN 03/02/18 Polyethylene Glycol 3350 [Miralax 17 gm PO Q2D 03/02/18 17 gm (*)] Triamcinolone 0.1% [Triamcinolone 1 patricia TP BID PRN 03/02/18 0.1% Cream (*)] Laboratory Results: Laboratory Results 03/02/18 20:43 03/02/18 20:43 03/02/18 03/02/18 03/02/18 21:30 20:43 20:43 WBC RBC Hgb Hct MCV MCH MCHC RDW Plt Count MPV Neut % (Auto) Lymph % (Auto) Ford % (Auto) Eos % (Auto) Baso % (Auto) Nucleat RBC Rel Count Absolute Neuts (auto) Absolute Lymphs (auto) Absolute Monos (auto) Absolute Eos (auto) Absolute Basos (auto) Absolute Nucleated RBC Immature Gran % Immature Gran # PT INR APTT VBG Lactic Acid Sodium Potassium Chloride Carbon Dioxide Anion Gap BUN Creatinine Estimated GFR Glucose Calcium Total Bilirubin 0.8 mg/dL mg/dL (0.1-1.4) Conjugated Bilirubin 0.6 mg/dL H mg/dL (0.0-0.5) Unconjugated Bilirubin 0.2 mg/dL mg/dL (0.0-1.1) AST 17 IU/L IU/L (17-59) ALT 29 IU/L IU/L (21-72) Alkaline Phosphatase 64 IU/L IU/L (38-126) Total Protein 7.5 g/dL g/dL (6.3-8.2) Albumin 4.2 g/dL g/dL (3.5-5.0) Procalcitonin 0.22 ng/mL H ng/mL (0.02-0.10) Urine Color YELLOW Urine Appearance CLEAR Urine pH 5.0 (5.0-7.5) Ur Specific [place] 1.019 (1.002-1.030) Urine Protein NEGATIVE (NEGATIVE) Urine Ketones NEGATIVE (NEGATIVE) Urine Blood 1+ H (NEGATIVE) Urine Nitrate NEGATIVE (NEGATIVE) Urine Bilirubin NEGATIVE (NEGATIVE) Urine Urobilinogen 4.0 EU H EU (0.2-1.0) Ur Leukocyte Esterase NEGATIVE (NEGATIVE) Urine RBC 3-5 /hpf H /hpf (0-3) Urine WBC Not Reported Ur Epithelial Cells TRACE /lpf /lpf (NONE-1+) Hyaline Casts 1-5 /lpf /lpf (0-1) Urine Mucus TRACE /lpf /lpf (NONE-1+) Urine Glucose NEGATIVE (NEGATIVE) Nasal Influenza A PCR Nasal Influenza B PCR 03/02/18 03/02/18 03/02/18 20:43 20:43 20:43 WBC RBC Hgb Hct MCV MCH MCHC RDW Plt Count MPV Neut % (Auto) Lymph % (Auto) Ford % (Auto) Eos % (Auto) Baso % (Auto) Nucleat RBC Rel Count Absolute Neuts (auto) Absolute Lymphs (auto) Absolute Monos (auto) Absolute Eos (auto) Absolute Basos (auto) Absolute Nucleated RBC Immature Gran % Immature Gran # PT INR APTT VBG Lactic Acid 2.7 mmol/L H mmol/L (0.7-2.1) Sodium 139 mEq/L mEq/L (135-145) Potassium 4.1 mEq/L mEq/L (3.5-5.2) Chloride 102 mEq/L mEq/L (97-110) Carbon Dioxide 23 mEq/l mEq/l (22-31) Anion Gap 14 mEq/L mEq/L (8-16) BUN 24 mg/dL H mg/dL (7-23) Creatinine 1.1 mg/dL mg/dL (0.7-1.3) Estimated GFR > 60 Glucose 110 mg/dL H mg/dL (70-100) Calcium 9.0 mg/dL mg/dL (8.5-10.4) Total Bilirubin 0.8 mg/dL mg/dL (0.1-1.4) Conjugated Bilirubin Unconjugated Bilirubin AST ALT Alkaline Phosphatase Total Protein Albumin Procalcitonin Urine Color Urine Appearance Urine pH Ur Specific [place] Urine Protein Urine Ketones Urine Blood Urine Nitrate Urine Bilirubin Urine Urobilinogen Ur Leukocyte Esterase Urine RBC Urine WBC Ur Epithelial Cells Hyaline Casts Urine Mucus Urine Glucose Nasal Influenza A PCR NEGATIVE FOR FLU A (NEGATIVE) Nasal Influenza B PCR NEGATIVE FOR FLU B (NEGATIVE) 03/02/18 03/02/18 20:43 20:43 WBC 14.46 10^3/uL H 10^3/uL (3.80-9.50) RBC 4.81 10^6/uL 10^6/uL (4.40-6.38) Hgb 14.9 g/dL g/dL (13.7-17.5) Hct 44.0 % % (40.0-51.0) MCV 91.5 fL fL (81.5-99.8) MCH 31.0 pg pg (27.9-34.1) MCHC 33.9 g/dL g/dL (32.4-36.7) RDW 15.8 % H % (11.5-15.2) Plt Count 249 10^3/uL 10^3/uL (150-400) MPV 9.6 fL fL (8.7-11.7) Neut % (Auto) 89.5 % H % (39.3-74.2) Lymph % (Auto) 4.3 % L % (15.0-45.0) Ford % (Auto) 4.8 % % (4.5-13.0) Eos % (Auto) 0.2 % L % (0.6-7.6) Baso % (Auto) 0.4 % % (0.3-1.7) Nucleat RBC Rel Count 0.0 % % (0.0-0.2) Absolute Neuts (auto) 12.94 10^3/uL H 10^3/uL (1.70-6.50) Absolute Lymphs (auto) 0.62 10^3/uL L 10^3/uL (1.00-3.00) Absolute Monos (auto) 0.70 10^3/uL 10^3/uL (0.30-0.80) Absolute Eos (auto) 0.03 10^3/uL 10^3/uL (0.03-0.40) Absolute Basos (auto) 0.06 10^3/uL 10^3/uL (0.02-0.10) Absolute Nucleated RBC 0.00 10^3/uL 10^3/uL (0-0.01) Immature Gran % 0.8 % % (0.0-1.1) Immature Gran # 0.11 10^3/uL H 10^3/uL (0.00-0.10) PT 14.1 SEC SEC (12.0-15.0) INR 1.07 (0.83-1.16) APTT 31.5 SEC SEC (23.0-38.0) VBG Lactic Acid Sodium Potassium Chloride Carbon Dioxide Anion Gap BUN Creatinine Estimated GFR Glucose Calcium Total Bilirubin Conjugated Bilirubin Unconjugated Bilirubin AST ALT Alkaline Phosphatase Total Protein Albumin Procalcitonin Urine Color Urine Appearance Urine pH Ur Specific [place] Urine Protein Urine Ketones Urine Blood Urine Nitrate Urine Bilirubin Urine Urobilinogen Ur Leukocyte Esterase Urine RBC Urine WBC Ur Epithelial Cells Hyaline Casts Urine Mucus Urine Glucose Nasal Influenza A PCR Nasal Influenza B PCR Medications Given: Discontinued Medications Sodium Chloride (Ns) 1,000 mls @ 0 mls/hr IV EDNOW ONE; Wide Open PRN Reason: Protocol Stop: 03/02/18 21:29 Last Admin: 03/02/18 21:45 Dose: 1,000 mls Sodium Chloride (Ns) 1,000 mls @ 0 mls/hr IV EDNOW ONE; Wide Open PRN Reason: Protocol Stop: 03/02/18 21:32 Last Admin: 03/02/18 21:46 Dose: 1,000 mls Ceftriaxone Sodium/Dextrose (Rocephin 1 Gm (Premix)) 50 mls @ 100 mls/hr IV EDNOW ONE PRN Reason: Protocol Stop: 03/02/18 22:07 Last Admin: 03/02/18 21:49 Dose: 50 mls Vancomycin/Sodium Chloride (Vancomycin 1 Gm (Premix)) 250 mls @ 250 mls/hr IV EDNOW ONE PRN Reason: Protocol Stop: 03/02/18 22:38 Last Admin: 03/02/18 22:18 Dose: 250 mls Departure - Departure Disposition: [facility] Inpatient Acute Clinical Impression: Sepsis Qualifiers: Sepsis type: sepsis due to unspecified organism Qualified Code(s): A41.9 - Sepsis, unspecified organism Fever Qualifiers: Fever type: unspecified Qualified Code(s): R50.9 - Fever, unspecified Condition: Good
[2018-03-02 20:57] LABS: PLATELET COUNT 249 10^3/uL (150-400)
[2018-03-02 21:10] LABS: INR 1.07 (0.83-1.16); PROTIME(PATIENT) 14.1 SEC (12.0-15.0)
[2018-03-02] MEDS ORDERED: NS 1,000 ML IV ONE ×2 (21:28→21:31)
[2018-03-02] MEDS ORDERED: VANCOMYCIN HCL/NORMAL SALINE 250 ML IV ONE (21:39)
--- NOTE | 2018-03-02 21:54 | GCON ---
[f rep st] CONSULTATION [facility] NOTE. DATE OF CONSULTATION: 03/02/2018 REQUESTING PHYSICIAN: Ezequiel Hatfield MD. CHIEF COMPLAINT: Fever. HISTORY OF PRESENT ILLNESS: The patient is an 82-year-old man with bilateral lower extremity venous insufficiency with stasis dermatitis and ulceration. He is seen in the Wound Clinic on Fridays and has 2 layer wraps placed. He has Mepilex transfer placed over some of the wounds and Hydrofera Blue transfer on the deeper wound on his left medial ankle. Boaz noted today that he was not feeling as well. They took his temperature and he was febrile. He was brought into the hospital. PAST MEDICAL HISTORY: Hypothyroidism, dyslipidemia, osteoarthritis, history of colon cancer. PAST SURGICAL HISTORY: Ortho and spine surgery. SOCIAL HISTORY: Does not use tobacco. 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 FAMILY HISTORY: Noncontributory. ROS: Weakness, upper respiratory symptoms, malaise, some shortness of breath, otherwise 10 point review of systems is negative PHYSICAL EXAM: VITAL SIGNS: 37.3, 105, 121/83, 20, 94%. GENERAL: Pleasant, sitting up in bed, appears weak. Son at bedside. SKIN: His lower extremity wounds appear stable. There is hemosiderin deposition and skin changes consistent with stasis dermatitis. He has small ulcers. There are no signs of bright erythema, certainly no ascending infection. There was a slight green tinge on the Aquacel foam. Assessment and Plan: No obvious wound infection They can place Kerlix back over the wound and consult inpatient wound over the next 24-48 hours. Our service will be on standby. /[id number]/MODL MTDD
[2018-03-02] MEDS ORDERED: ONDANSETRON DISINTEGRATING 4 MG TAB PO PRN (22:12)
[2018-03-02] MEDS ORDERED: ACETAMINOPHEN 325 MG TAB PO PRN (22:12)
[2018-03-02] MEDS ORDERED: ONDANSETRON 4 MG/2 ML VIAL IVP PRN (22:12)
--- NOTE | 2018-03-02 23:20 | PDGENHP ---
History and Physical - Chief Complaint Fever - History of Present Illness 82 yo M w/ hx of venous insufficiency and chronic LE wounds presents with fever. Patient began to feel cold at this nursing facility today so he had his vitals taken. At this point it was found that he was febrile. Fever was confirmed in ED with Tmax of 38.1. He and his son feel that his LE wounds have actually been improving over the last several weeks with regular wound care. Patient denies all localizing symptoms. He does admit to dry cough but he states this is chronic. He specifically denies vomiting, abdominal pain, diarrhea, dysuria, and shortness of breath. History Information - Allergies/Home Medication List Allergies/Adverse Reactions: Penicillins Allergy (Unknown, Verified 03/02/18 20:14) Home Medications: Levothyroxine Sodium [Synthroid] 75 mcg PO DAILY@02/16/13 [Last Taken ] Tamsulosin HCl [Flomax 0.4 MG (*)] 0.4 mg PO DAILY@02/16/13 [Last Taken 02/22] Acetaminophen [Tylenol 325mg (*)] 650 mg PO Q4HRS PRN 07/04/17 [Last Taken Unknown] Aspirin EC [Aspirin EC 81 mg (*)] 81 mg PO DAILY@07/04/17 [Last Taken Unknown ] Furosemide [Lasix 40 MG (*)] 40 mg PO DAILY@07/04/17 [Last Taken Unknown] Herbals/Supplements -Info Only 1 each PO DAILY 07/04/17 [Last Taken Unknown] Magnesium Hydroxide [Milk of Magnesia] 30 ml PO DAILY PRN 07/04/17 [Last Taken Unknown] Pantoprazole Sodium [Protonix 40mg (*)] 40 mg PO DAILY@07/04/17 [Last Taken Unknown] Polyethylene Glycol 3350 [Miralax 17 gm (*)] 17 gm PO DAILY PRN 07/04/17 [Last Taken Unknown] Potassium Cl [Klor-Con 20 meq (*)] 20 meq PO DAILY@07/04/17 [Last Taken Unknown] Sennosides/Docusate Sodium [Senna-Docusate Sodium Tablet] 1 each PO BID PRN 09/10 [Last Taken Unknown] Diclofenac Sodium 1% [Voltaren Gel (*)] 2 gm TP BID PRN 03/02/18 [Last Taken Unknown] Ibuprofen [Motrin (*)] 200 mg PO Q8HRS PRN 03/02/18 [Last Taken Unknown] Nystatin [Mycostatin Cream (RX)] 1 patricia TP TID PRN 03/02/18 [Last Taken Unknown] Polyethylene Glycol 3350 [Miralax 17 gm (*)] 17 gm PO Q2D 03/02/18 [Last Taken Unknown] Triamcinolone 0.1% [Triamcinolone 0.1% Cream (*)] 1 patricia TP BID PRN 03/02/18 [ Last Taken Unknown] I have personally reviewed and updated: family history, medical history - Past Medical History Additional medical history: Venous insufficiency. Chronic LE wounds. BPH - Surgical History Reports: spinal surgery - Family History Additional family history: Hypothyroidism - Social History Smoking Status: Former smoker Review of Systems Review of Systems: ROS: 10pt was reviewed & negative except for what was stated in HPI & below Physical Exam Physical Exam: Temp Pulse Resp BP Pulse Ox 38 C 103 H 18 134/94 H 92 03/02/18 22:30 03/02/18 22:30 03/02/18 22:30 03/02/18 22:30 03/02/18 22:30 Constitutional: appears nourished, uncomfortable Eyes: PERRL, EOMI Ears, Nose, Mouth, Throat: moist mucous membranes, no oral mucosal ulcers Cardiovascular: regular rate and rhythym, no murmur, rub, or gallop Respiratory: no respiratory distress, clear to auscultation Gastrointestinal: normoactive bowel sounds, soft, non-tender abdomen Skin: warm, other (Changes c/w venous stasis dermatitis b/l STEPHANI, ulceration L medial ankle w/ no signs of infection) Musculoskeletal: full muscle strength, no muscle tenderness Neurologic: AAOx3, CN II-XII Intact Psychiatric: interacting appropriately, not anxious Lab Data & Imaging Review 03/02/18 20:43 03/02/18 20:43 WBC 14.46 10^3/uL (3.80-9.50) H 03/02/18 20:43 RBC 4.81 10^6/uL (4.40-6.38) 03/02/18 20:43 Hgb 14.9 g/dL (13.7-17.5) 03/02/18 20:43 Hct 44.0 % (40.0-51.0) 03/02/18 20:43 MCV 91.5 fL (81.5-99.8) 03/02/18 20:43 MCH 31.0 pg (27.9-34.1) 03/02/18 20:43 MCHC 33.9 g/dL (32.4-36.7) 03/02/18 20:43 RDW 15.8 % (11.5-15.2) H 03/02/18 20:43 Plt Count 249 10^3/uL (150-400) 03/02/18 20:43 MPV 9.6 fL (8.7-11.7) 03/02/18 20:43 Neut % (Auto) 89.5 % (39.3-74.2) H 03/02/18 20:43 Lymph % (Auto) 4.3 % (15.0-45.0) L 03/02/18 20:43 [place] % (Auto) 4.8 % (4.5-13.0) 03/02/18 20:43 Eos % (Auto) 0.2 % (0.6-7.6) L 03/02/18 20:43 Baso % (Auto) 0.4 % (0.3-1.7) 03/02/18 20:43 Nucleat RBC Rel Count 0.0 % (0.0-0.2) 03/02/18 20:43 Absolute Neuts (auto) 12.94 10^3/uL (1.70-6.50) H 03/02/18 20:43 Absolute Lymphs (auto) 0.62 10^3/uL (1.00-3.00) L 03/02/18 20:43 Absolute Monos (auto) 0.70 10^3/uL (0.30-0.80) 03/02/18 20:43 Absolute Eos (auto) 0.03 10^3/uL (0.03-0.40) 03/02/18 20:43 Absolute Basos (auto) 0.06 10^3/uL (0.02-0.10) 03/02/18 20:43 Absolute Nucleated RBC 0.00 10^3/uL (0-0.01) 03/02/18 20:43 Immature Gran % 0.8 % (0.0-1.1) 03/02/18 20:43 Immature Gran # 0.11 10^3/uL (0.00-0.10) H 03/02/18 20:43 PT 14.1 SEC (12.0-15.0) 03/02/18 20:43 INR 1.07 (0.83-1.16) 03/02/18 20:43 APTT 31.5 SEC (23.0-38.0) 03/02/18 20:43 VBG Lactic Acid 2.0 mmol/L (0.7-2.1) 03/02/18 22:25 Sodium 139 mEq/L (135-145) 03/02/18 20:43 Potassium 4.1 mEq/L (3.5-5.2) 03/02/18 20:43 Chloride 102 mEq/L (97-110) 03/02/18 20:43 Carbon Dioxide 23 mEq/l (22-31) 03/02/18 20:43 Anion Gap 14 mEq/L (8-16) 03/02/18 20:43 BUN 24 mg/dL (7-23) H 03/02/18 20:43 Creatinine 1.1 mg/dL (0.7-1.3) 03/02/18 20:43 Estimated GFR > 60 03/02/18 20:43 Glucose 110 mg/dL (70-100) H 03/02/18 20:43 Calcium 9.0 mg/dL (8.5-10.4) 03/02/18 20:43 Total Bilirubin 0.8 mg/dL (0.1-1.4) 03/02/18 20:43 Conjugated Bilirubin 0.6 mg/dL (0.0-0.5) H 03/02/18 20:43 Unconjugated Bilirubin 0.2 mg/dL (0.0-1.1) 03/02/18 20:43 AST 17 IU/L (17-59) 03/02/18 20:43 ALT 29 IU/L (21-72) 03/02/18 20:43 Alkaline Phosphatase 64 IU/L (38-126) 03/02/18 20:43 Total Protein 7.5 g/dL (6.3-8.2) 03/02/18 20:43 Albumin 4.2 g/dL (3.5-5.0) 03/02/18 20:43 Procalcitonin 0.22 ng/mL (0.02-0.10) H 03/02/18 20:43 Urine Color YELLOW 03/02/18 21:30 Urine Appearance CLEAR 03/02/18 21:30 Urine pH 5.0 (5.0-7.5) 03/02/18 21:30 Ur Specific Gibson 1.019 (1.002-1.030) 03/02/18 21:30 Urine Protein NEGATIVE (NEGATIVE) 03/02/18 21:30 Urine Ketones NEGATIVE (NEGATIVE) 03/02/18 21:30 Urine Blood 1+ (NEGATIVE) H 03/02/18 21:30 Urine Nitrate NEGATIVE (NEGATIVE) 03/02/18 21:30 Urine Bilirubin NEGATIVE (NEGATIVE) 03/02/18 21:30 Urine Urobilinogen 4.0 EU (0.2-1.0) H 03/02/18 21:30 Ur Leukocyte Esterase NEGATIVE (NEGATIVE) 03/02/18 21:30 Urine RBC 3-5 /hpf (0-3) H 03/02/18 21:30 Urine WBC Not Reported 03/02/18 21:30 Ur Epithelial Cells TRACE /lpf (NONE-1+) 03/02/18 21:30 Hyaline Casts 1-5 /lpf (0-1) 03/02/18 21:30 Urine Mucus TRACE /lpf (NONE-1+) 03/02/18 21:30 Urine Glucose NEGATIVE (NEGATIVE) 03/02/18 21:30 Nasal Influenza A PCR NEGATIVE FOR FLU A (NEGATIVE) 03/02/18 20:43 Nasal Influenza B PCR NEGATIVE FOR FLU B (NEGATIVE) 03/02/18 20:43 Imaging Review: Imaging Impressions Chest X-Ray 03/02/18 20:39 Impression: 1. Moderate hiatal hernia. 2. No definite pneumonia. Assessment & Plan Assessment: 82 yo M w/ hx of venous insufficiency and chronic LE wounds presents with fever. Plan: 1. Fever - WBC 14 and mild tachycardia present on admission; source unclear so not clearly sepsis currently. Considerations for source include LE wounds vs. viral syndrome. Patient feels LE wounds are actually improving from prior. Dr. Quinones evaluated these in the ED and did not deem there to be clear signs of infection. UA and CXR with no signs of infection on admission. - Admit for observation, s/p 2L IVF - Blood cultures, respiratory PCR, procalcitonin, ESR/CRP - S/p Vanc/CTX in ED; will observe off of further antibiotics noting lack of clear source - Wound care consult placed 2. Chronic LE wounds - As a result of chronic venous insufficiency. He receives regular wound care and per report these have been improving. Evaluated by Dr. Quinones in the ED. - Appreciate surgical assistance - Acute infectious work-up as above - Wound care consult placed 3. Hypothyroid - On LTX 4. BPH - Continue home meds Diet - Regular Code - Full Ppx - LMWH Dispo - Admit under observation status
[2018-03-03 05:14] LABS: PLATELET COUNT 244 10^3/uL (150-400)
[2018-03-03] MEDS ORDERED: SENNOSIDES/DOCUSATE SODIUM TAB PO PRN (11:22)
[2018-03-03] MEDS ORDERED: DICLOFENAC SODIUM 1% 100 GM GEL TP PRN (11:22)
[2018-03-03] MEDS ORDERED: TRIAMCINOLONE 0.1% 15 GM CRTUBE TP PRN (11:22)
[2018-03-03] MEDS ORDERED: POLYETHYLENE GLYCOL 3350 17 GM PKT PO PRN (11:22)
[2018-03-03] MEDS ORDERED: NYSTATIN 15 GM CR TUBE TP PRN (11:22)
[2018-03-03] MEDS ORDERED: MAGNESIUM HYDROXIDE 30 ML UDCUP PO PRN (11:22)
--- NOTE | 2018-03-03 11:46 | HOSPPROG ---
Hospitalist Progress Note Assessment/Plan: 82 yo M w chronic venous staasis changes admitted w sepsis sepsis: source of infection (leg), bacteremia, tachycardia cellulitis: 2/2 strep ceftriaxone bacteremia: check echo no murmur or peripheral embolic phenomena ID to see proph: [facility] dispo: inpt Subjective: case d/w dr de. grp A strep bacteremia noted Objective: Vital Signs Temp Pulse Resp BP Pulse Ox 36.6 C 60 16 110/67 91 L 03/03/18 11:27 03/03/18 11:27 03/03/18 11:27 03/03/18 11:27 03/03/18 11:27 Laboratory Results 03/03/18 04:50 03/03/18 04:50 03/02/18 03/03/18 03/04/18 05:59 05:59 05:59 Intake Total 1950 Balance 1950 PT 14.1 SEC (12.0-15.0) 03/02/18 20:43 INR 1.07 (0.83-1.16) 03/02/18 20:43 - Physical Exam Constitutional: no apparent distress, appears nourished Eyes: PERRL, anicteric sclera Ears, Nose, Mouth, Throat: moist mucous membranes, hearing normal Cardiovascular: regular rate and rhythym, no murmur, rub, or gallop Respiratory: no respiratory distress, no rales or rhonchi Gastrointestinal: normoactive bowel sounds, soft, non-tender abdomen Genitourinary: no bladder fullness, No liriano in urethra Skin: warm, normal color Musculoskeletal: other (b/l LE venous stasis changes. circumferential cellulitis inferior to L knee. L knee w no effusion and free ROM) Neurologic: AAOx3, sensation intact bilaterally Psychiatric: interacting appropriately ICD10 Worksheet Patient Problems: Problems Problem Status Onset Fever Acute Sepsis Acute Anemia, iron deficiency Acute Cellulitis Acute
--- NOTE | 2018-03-03 12:15 | ASMTCASEMG ---
Living Arrangements What is your living Answers: Alone arrangement? Who do you live with? Type Of Residence What kind of residence do Answers: [facility] Type of Residence Facility Name Notes: [facility] Discharge Plan Comments Coordination Status Comments Notes: Pt is a 82 y/o man admitted for sepsis. Therapies have been ordered and awaiting recommendations. Wound care has been consulted. Needs are TBD at this time. CM to follow. Plan: TBD Date Signed: 03/03/2018 12:14 PM Electronically Signed By:BAY Triplett
[2018-03-03] MEDS: ENOXAPARIN 40 MG/0.4 ML SYR SC SCH (12:17)
--- NOTE | 2018-03-03 14:21 | PCMIDPN ---
Assessment/Plan: 1. Group A strep bacteremia secondary to left lower extremity skin and soft tissue infection, superimposed upon chronic venous stasis dermatitis: No clinical evidence of toxic shock syndrome, necrotizing fasciitis, or myositis. Continue ceftriaxone as is; repeat blood cultures tomorrow. Follow liver function tests on ceftriaxone. I do not feel that his leg needs imaging at this point in time, or that clindamycin should be added. Continue wound care , and leg elevation. Of note, the patient has a left knee arthroplasty that does not appear to be involved at all. Consider prophylactic Keflex moving forward given frequent recurrence of infections. 03/03/18 14:25 Subjective: Patient is well known to the Infectious Disease service. He is followed at the [facility] for chronic venous stasis dermatitis. He is seen every Saturday. Patient is admitted presently with a left lower extremity cellulitis, with lymphangitic streaking. He is fairly stoical, and in good spirits. His son is present in the room. He denies nausea, vomiting, diarrhea. His left lower extremity is sore. Objective: Ceftriaxone 1 g IV daily day 2 (received a dose of vancomycin in the emergency room) T-max 38 degrees Vital Signs Temp Pulse Resp BP Pulse Ox 36.6 C 60 16 110/67 91 L 03/03/18 11:27 03/03/18 11:27 03/03/18 11:27 03/03/18 11:27 03/03/18 11:27 Laboratory Results 03/03/18 04:50 03/03/18 04:50 03/02/18 03/03/18 03/04/18 05:59 05:59 05:59 Intake Total 1950 Balance 1950 ESR 14 MM/HR (0-20) 03/02/18 20:43 C-Reactive Protein 15.5 mg/L (<10.0) H 03/02/18 20:43 Blood cultures March 0211/28 bottles with group a strep Previous lower extremity ulceration cultures have grown group a strep from November 2017 and Proteus mirabilis susceptible to ceftriaxone - Physical Exam General Appearance: other (Elderly male, laying in bed nontoxic-appearing) EENT: pharynx normal, No thrush Respiratory: lungs clear Cardiac/Chest: regular rate, rhythm Extremities: other (Both lower extremities with venous stasis changes. Left lower extremity with notable a beet red erythema, superior aspect of lower extremity that extends to just beneath the knee. There is lymphangitic streaking up his medial thigh, but no inguinal tenderness. Patient has some open ulcerations medial aspect left lower extremity and right lower extremity that have a clean base.) Skin: No rash ICD10 Worksheet Patient Problems: Problems Problem Status Onset Fever Acute Sepsis Acute Anemia, iron deficiency Acute Cellulitis Acute
--- NOTE | 2018-03-03 14:40 | ECHO ---
[email or web address] [address] [address] Main: [phone] Fax: Transthoracic Echocardiogram Name: MARCE VITALE MR#: [id number] Study Date: 03/03/2018 Study Time: 01:44 PM Date of : 1935 Age: 82 year(s) Height: 185.4 cm (73 in.) Weight: 95.26 kg (210 lb.) BSA: 2.2 m2 Gender: Male Examination: Echo Indication: Bacteremia Image Quality: Adequate Contrast: Requested by: Wes Horowitz BP: 110 mmHg/67 mmHg Heart Rate: Rhythm: Indication: Bacteremia Procedure Staff Inspection Manager: Gloria Lopez RUST Reading Physician: Yong Ortiz MD Requesting Provider: Conclusions: Normal study with th exception of mild aortic valve sclerosis. No vegitations seen. No indications for surgical evaluation. Measurements: Chambers Valvular Assessment AV/MV Valvular Assessment TV/PV Normal Normal Normal Name Value Range Name Value Range Name Value Range Ao Parvin (2D): 3.3 cm (1.4 cm-2.6 AV Vmax: 1.53 m/s (1 m/s-1.7 TR Vmax: 2.93 mm/s ( - ) cm) m/s) TR PGmax: 34 mmHg ( - ) IVSd (2D): 0.9 cm (0.6 cm-1.1 AV maxP mmHg ( - ) syst. PAP: 39 mmHg ( - ) cm) AV meanP mmHg ( - ) PV Vmax: 1.19 m/s (0.6 m/s-0.9 LVDd (2D): 4.5 cm (4.2 cm-5.9 LVOT Vmax: 1.29 m/s (0.7 m/s-1.1 m/s) cm) m/s) PV PGmax: 6 mmHg ( - ) LVDs (2D): 2.9 cm (2.1 cm-4 [place] (Vmax): 2.9 cm2 ( - ) cm) [place] (VTI): 2.6 cm ( - ) LVPWd (2D): 0.9 cm (0.6 cm-1 MV E Vmax: 0.84 m/s ( - ) cm) MV A Vmax: 0.51 m/s ( - ) LVOTd 2.1 cm 2.1 cm mm MV E/A: 1.65 ( - ) LVEF (BP): 65 % (>=55 %) MV PHT: 0.075 s ( - ) RVDd(2D): 3.7 cm (1.9 cm-3.8 cmmm) MVA (PHT): 2.9 s ( - ) Continued Measurements: Chambers Valvular Assessment AV/MV Valvular Assessment TV/PV Name Value Name Value Name Value LADs: 3.5 cm MV DecTime: 254 m/s CVP (est.): 5 mmHg LADs Lon.2 cm MV E/E' Septal: 8.80 LA Area: 22.8 cm2 MV E/E' Lateral: 10.80 LA Volume: 67 ml Patient: AMRCE VITALE Study Date: 03/03/2018 Page 1 of 2 01:44 PM LA Volume Index: 30.5 ml/m2 RA Area: 19.6 cm2 Additional Vessels Name Value Ao Ascendin.2 cm Inferior Vena Cava: 2.8 cm Findings: Left Ventricle: Normal size left ventricle. No LV hypertrophy. Normal global systolic LV function. EF is 65 %. No regional wall motion abnormality. Normal diastolic LV function. Right Ventricle: Mildly dilated right ventricle. Normal RV function. Left Atrium: The left atrium is normal in size. Right Atrium: The right atrium is normal in size. Mitral Valve: The mitral valve is normal in appearance and function. Mild mitral valve regurgitation is present. No mitral stenosis is present. Aortic Valve: The aortic valve is normal in appearance and function. Aortic sclerosis is present. There is no aortic valve regurgitation. No aortic valve stenosis is present. Tricuspid Valve: The tricuspid valve is normal in appearance and function. Mild to moderate tricuspid valve regurgitation. The pulmonary artery pressure is normal. Right ventricular systolic pressure measures 39mmHg. Pulmonic Valve: The pulmonic valve is normal in appearance and function. Mild pulmonic valve regurgitation is noted. Aorta: The aorta is normal. Normal size aortic root measuring 3.3 cm. Normal size ascending aorta measuring 3.2 cm. IVC: The IVC is dilated. Pericardium: No pericardial effusion. No pleural effusion. (No Signature Object) Patient: MARCE VITALE Study Date: 03/03/2018 Page 2 of 2 01:44 PM [id number]
--- NOTE | 2018-03-03 14:51 | WOCRNPDOC ---
CHERELLE Advanced Assessment Note - Skin Integrity Problem, Advanced Assess Left Medial Ankle Venous Stasis Ulcer Dressing Type: Hydrofera Blue Ready, Kerlix Dressing Description: Clean/Dry, Intact Exudate Amount: Scant Exudate Color: Reddish/Yellow Exudate Characteristic(s): Serosanguinous Integumentary Issue Intervention: Dressing Changed, Silver Gel Applied Yodit Wound Tissue: Erythema, Venous Dermatitis, Thin, Dry Wound Bed Color: [place] Wound Bed Constitution: Red/[place] - Non Granular Tissue Wound Edges: Well Defined Site Measurement - Head-to-Toe Length X Width X Depth (cm): 3x1.5x0.4 Skin Integrity Problem Comment: Patient with chronic BLE wounds, seen weekly at the wound healing center. Dressings taken down. Wound cleaned with NS and gauze. Skin prep applied to yodit wound tissue and silver gel applied to wound bed. Hydrofera blue ready cut to fit wound bed and covered with an allevyn. Patient would benefit from compression, measured for spandagrip size D. Patient tolerated well. Wound care will round again later this week. Right Medial Ankle Venous Stasis Ulcer Dressing Type: Kerlix, Mepilex Transfer Dressing Description: Clean/Dry, Intact Exudate Amount: None Integumentary Issue Intervention: Dressing Changed, Silver Gel Applied Yodit Wound Tissue: Erythema, Venous Dermatitis, Thin, Dry Wound Bed Color: Brown Wound Bed Constitution: Dried Exudate Wound Edges: Well Defined Site Measurement - Head-to-Toe Length X Width X Depth (cm): 2.2x0.9x0.2 Skin Integrity Problem Comment: Wound cleaned with NS and gauze. Skin prep applied to yodit wound tissue and silver gel applied to wound bed and covered with an allevyn. Patient would benefit from compression, measured for spandagrip size D. Patient tolerated well. Wound care will round again later this week. Right Lateral Foot Venous Stasis Ulcer Dressing Type: Kerlix, Mepilex Transfer Exudate Amount: None Integumentary Issue Intervention: Dressing Changed, Silver Gel Applied Yodit Wound Tissue: Thin, Xerotic Yodit Wound Swelling: Mild Wound Bed Color: Yellow Wound Bed Constitution: Dried Exudate Wound Edges: Well Defined Site Measurement - Head-to-Toe Length X Width X Depth (cm): 1x1.5x0.1 Skin Integrity Problem Comment: Wound cleaned with NS and gauze. Skin prep applied to yodit wound tissue, silver gel applied to wound bed and covered with an allevyn. Patient tolerated well. Wound care will round again later this week.
--- NOTE | 2018-03-03 16:41 | PDMN ---
Medical Necessity Medical necessity: M160 sepsis and other febrile illness:A-3 days bacteremia, tachycardia, cellulitis ( leg) 2/2 strep A cont. med nec care> 2 midnights change to INPT 03/03/18 @ 16:30
[2018-03-04] MEDS: IBUPROFEN 200 MG TAB PO PRN (00:13)
[2018-03-04] MEDS: LEVOTHYROXINE 75 MCG TAB PO SCH (06:54)
[2018-03-04] MEDS ORDERED: Herbals/Supplements -Info Only PO SCH (09:00)
[2018-03-04 09:50] LABS: PLATELET COUNT 219 10^3/uL (150-400)
[2018-03-04] MEDS: ASPIRIN EC 81 MG TAB PO SCH (10:39)
[2018-03-04] MEDS: ENOXAPARIN 40 MG/0.4 ML SYR SC SCH (10:39)
[2018-03-04] MEDS: PANTOPRAZOLE SODIUM 40 MG TAB PO SCH (10:39)
[2018-03-04] MEDS: TAMSULOSIN HCL 0.4 MG CAP PO SCH (10:39)
--- NOTE | 2018-03-04 11:03 | HOSPPROG ---
Hospitalist Progress Note Assessment/Plan: 82 yo M w chronic venous staasis changes admitted w sepsis sepsis: source of infection (leg), bacteremia, tachycardia cellulitis: 2/2 strep ceftriaxone bacteremia: check echo no murmur or peripheral embolic phenomena ID to see proph: [facility] dispo: inpt Subjective: case d/w dr franco. afebrile Objective: Vital Signs Temp Pulse Resp BP Pulse Ox 36.6 C 56 L 18 139/82 H 92 03/04/18 07:15 03/04/18 07:15 03/04/18 07:15 03/04/18 07:15 03/04/18 07:15 Laboratory Results 03/04/18 09:38 03/03/18 04:50 03/03/18 03/04/18 03/05/18 05:59 05:59 05:59 Intake Total 1950 350 Balance 1950 350 PT 14.1 SEC (12.0-15.0) 03/02/18 20:43 INR 1.07 (0.83-1.16) 03/02/18 20:43 ICD10 Worksheet Patient Problems: Problems Problem Status Onset Fever Acute Sepsis Acute Anemia, iron deficiency Acute Cellulitis Acute
--- NOTE | 2018-03-04 11:50 | HOSPPROG ---
Hospitalist Progress Note Assessment/Plan: 82 yo M w chronic venous staasis changes admitted w sepsis sepsis: source of infection (leg), bacteremia, tachycardia cellulitis: 2/2 strep ceftriaxone bacteremia: echo unremarkable no murmur or peripheral embolic phenomena ID to see repeat cx neg afebrile proph: lmwh dispo: inpt Subjective: case d/w dr franco Objective: Vital Signs Temp Pulse Resp BP Pulse Ox 36.6 C 56 L 18 139/82 H 92 03/04/18 07:15 03/04/18 07:15 03/04/18 07:15 03/04/18 07:15 03/04/18 07:15 Laboratory Results 03/04/18 09:38 03/03/18 04:50 03/03/18 03/04/18 03/05/18 05:59 05:59 05:59 Intake Total 1950 350 Balance 1950 350 PT 14.1 SEC (12.0-15.0) 03/02/18 20:43 INR 1.07 (0.83-1.16) 03/02/18 20:43 - Physical Exam Constitutional: no apparent distress, appears nourished Eyes: PERRL, anicteric sclera Ears, Nose, Mouth, Throat: moist mucous membranes, hearing normal Cardiovascular: regular rate and rhythym, no murmur, rub, or gallop Respiratory: no respiratory distress, no rales or rhonchi Gastrointestinal: normoactive bowel sounds, soft, non-tender abdomen Genitourinary: no bladder fullness, No liriano in urethra Skin: warm, other (L below the knee cellulitis much improved.) Musculoskeletal: other (L knee w no effusion, no pain w movement, full ROM) Neurologic: AAOx3 ICD10 Worksheet Patient Problems: Problems Problem Status Onset Fever Acute Sepsis Acute Anemia, iron deficiency Acute Cellulitis Acute
--- NOTE | 2018-03-04 14:48 | ASMTCMCOM ---
CM Note CM Note Notes: CM met w/ pt and son for dispo planning. PT is recommending HC. OT is recommending HC vs SNF. Pt and son do not think that SNF is needed at this time. Pt is interested in having HC. Pt does not have a preference on HC agencies as long as it is covered with [employer]. Referral made to [facility]. [facility] is able to accept referral. Margarette from [facility] met w/ pt and son. CM to follow. Plan: [facility], PT, OT, RN Date Signed: 03/04/2018 02:47 PM Electronically Signed By:BAY Triplett
--- NOTE | 2018-03-04 17:12 | PCMIDPN ---
Assessment/Plan: #Group A strep bacteremia secondary to left lower extremity skin and soft tissue infection, superimposed upon chronic venous stasis dermatitis: He is on weekly wraps and 6 months ago got venous ablation of his left lower extremity. Multiple past episodes of lower extremity cellulitis but this is the 1st time complicated by bacteremia. Cellulitis left lower extremity with recession and a ruben appearance consistent with clinical improvement. Also AF and remarkable improvement in WBC today. No evidence of endocarditis on exam or on TTE --discussed with W[facility] Healing nurses if patient would benefit from more frequent dressing changes to allow for bathing of the lower extremities --continue ceftriaxone 1 g IV daily, 1 g probably reasonable dose in this elderly patient --blood cultures repeated today, 03/06/2018 1st day that can place PICC line --discussed possible need for suppressive antibiotics #Penicillin allergic: Tolerates cephalosporins Med ceftriaxone 2gm IV daily #3 micro 03/02 blood cx 1/ GAS 03/03 blood cx (2) NGTD Subjective: patient feeling well without complaints Objective: Vital Signs Temp Pulse Resp BP Pulse Ox 37.1 C 61 18 116/64 92 03/04/18 14:54 03/04/18 14:54 03/04/18 14:54 03/04/18 14:54 03/04/18 14:54 Laboratory Results 03/04/18 09:38 03/03/18 04:50 03/03/18 03/04/18 03/05/18 05:59 05:59 05:59 Intake Total 1950 350 Balance 1950 350 ESR 14 MM/HR (0-20) 03/02/18 20:43 C-Reactive Protein 15.5 mg/L (<10.0) H 03/02/18 20:43 - Physical Exam General Appearance: alert, no apparent distress, non-toxic Respiratory: No accessory muscle use Extremities: inflammation, swelling, erythema (Ruben LLE tracking up medial thigh, mild warmth, NT. ), other (Wound B LE much smaller than my last exam, diffuse hyperpig c/w venous insuffiency) Skin: No rash Neuro/Psych: alert, normal mood/affect, oriented x 3 - Line/s PIV Lines: other (L anticub), No drainage, No erythema - Time Spent With Patient Time Spent with Patient: greater than 35 minutes (reviewing potential prevention methods including suppressive antibiotics, allowing for bathing LE more frequently (now just once weekly)) Time Spent with Patient: Greater than 35 minutes spent on this patients care, greater than 50% of time spent counseling, educating, and coordinating care regarding the above mentioned plan. ICD10 Worksheet Patient Problems: Problems Problem Status Onset Fever Acute Sepsis Acute Anemia, iron deficiency Acute Cellulitis Acute
[2018-03-05] MEDS: IBUPROFEN 200 MG TAB PO PRN (06:07)
[2018-03-05] MEDS: LEVOTHYROXINE 75 MCG TAB PO SCH (06:07)
[2018-03-05] MEDS ORDERED: POLYETHYLENE GLYCOL 3350 17 GM PKT PO SCH (09:00)
--- NOTE | 2018-03-05 09:40 | PCMIDPN ---
Assessment/Plan: #Group A strep bacteremia secondary to left lower extremity skin and soft tissue infection, superimposed upon chronic venous stasis dermatitis, LLE cellulitis with significant recession today compared to yesterday. --increase dose ceftriaxone to 2gm for bacteremia, 03/17 stop date --PICC line tomorrow #Penicillin allergic: Tolerates cephalosporins Med ceftriaxone 1gm IV daily #4 micro 03/02 blood cx 1/2 GAS 03/03 blood cx (2) NGTD Subjective: patient c/o about being on bed alarm no diarrhea no rash Objective: Vital Signs Temp Pulse Resp BP Pulse Ox 36.6 C 72 16 98/58 L 91 L 03/05/18 08:00 03/05/18 08:00 03/05/18 08:00 03/05/18 08:00 03/05/18 08:00 Laboratory Results 03/04/18 09:38 03/03/18 04:50 03/04/18 03/05/18 03/06/18 05:59 05:59 05:59 Intake Total 350 Balance 350 ESR 14 MM/HR (0-20) 03/02/18 20:43 C-Reactive Protein 15.5 mg/L (<10.0) H 03/02/18 20:43 - Physical Exam General Appearance: alert, no apparent distress Respiratory: No accessory muscle use Extremities: pedal edema, inflammation, erythema (LLE erythema recession to mid voss; tiny bit of siomara erythema distal medial thigh) Pelvic Exam: No liriano Skin: No rash Neuro/Psych: alert, normal mood/affect, oriented x 3 - Time Spent With Patient Time Spent with Patient: greater than 35 minutes Time Spent with Patient: Greater than 35 minutes spent on this patients care, greater than 50% of time spent counseling, educating, and coordinating care regarding the above mentioned plan. ICD10 Worksheet Patient Problems: Problems Problem Status Onset Fever Acute Sepsis Acute Anemia, iron deficiency Acute Cellulitis Acute
[2018-03-05] MEDS: ENOXAPARIN 40 MG/0.4 ML SYR SC SCH (09:41)
[2018-03-05] MEDS: ASPIRIN EC 81 MG TAB PO SCH (09:41)
[2018-03-05] MEDS: TAMSULOSIN HCL 0.4 MG CAP PO SCH (09:41)
[2018-03-05] MEDS: PANTOPRAZOLE SODIUM 40 MG TAB PO SCH (09:41)
--- NOTE | 2018-03-05 12:14 | PDIAF ---
- Diagnosis Diagnosis: GAS bacteremia and LLE cellulitis Code Status: Full Code - Medication Management Discharge Medications: Medications to Continue on Transfer Levothyroxine Sodium [Synthroid] 75 mcg PO DAILY@02/16/13 [Last Taken ] Tamsulosin HCl [Flomax 0.4 MG (*)] 0.4 mg PO DAILY@02/16/13 [Last Taken 02/22] Acetaminophen [Tylenol 325mg (*)] 650 mg PO Q4HRS PRN 07/04/17 [Last Taken Unknown] Aspirin EC [Aspirin EC 81 mg (*)] 81 mg PO DAILY@07/04/17 [Last Taken Unknown ] Furosemide [Lasix 40 MG (*)] 40 mg PO DAILY@07/04/17 [Last Taken Unknown] Herbals/Supplements -Info Only 1 each PO DAILY 07/04/17 [Last Taken Unknown] Magnesium Hydroxide [Milk of Magnesia] 30 ml PO DAILY PRN 07/04/17 [Last Taken Unknown] Pantoprazole Sodium [Protonix 40mg (*)] 40 mg PO DAILY@07/04/17 [Last Taken Unknown] Polyethylene Glycol 3350 [Miralax 17 gm (*)] 17 gm PO DAILY PRN 07/04/17 [Last Taken Unknown] Potassium Cl [Klor-Con 20 meq (*)] 20 meq PO DAILY@07/04/17 [Last Taken Unknown] Sennosides/Docusate Sodium [Senna-Docusate Sodium Tablet] 1 each PO BID PRN 09/10 [Last Taken Unknown] Diclofenac Sodium 1% [Voltaren Gel (*)] 2 gm TP BID PRN 03/02/18 [Last Taken Unknown] Ibuprofen [Motrin (*)] 200 mg PO Q8HRS PRN 03/02/18 [Last Taken Unknown] Nystatin [Mycostatin Cream (RX)] 1 patricia TP TID PRN 03/02/18 [Last Taken Unknown] Polyethylene Glycol 3350 [Miralax 17 gm (*)] 17 gm PO Q2D 03/02/18 [Last Taken Unknown] Triamcinolone 0.1% [Triamcinolone 0.1% Cream (*)] 1 patricia TP BID PRN 03/02/18 [ Last Taken Unknown] Market Research Specialist Antibiotics: ceftriaxone 2gm IV daily Retirement Antibiotic Stop Date: 03/17/18 Discharge Medications: Refer to the Discharge Home Medication list for PRN reason. PICC Care - Routine: Yes - Orders Services needed: Home Care, Registered Nurse Home Care Face to Face: I certify that this patient was under my care and that I had the required [id number] encounter meeting the encounter requirements on the discharge day. My findings support the fact that the patient is homebound as defined in Home Care Face to Face Continued: CMS Chapter 7 Medicare Benefits Manual 30.1.1 , The condition of the patient is such that there exists a normal inability to leave home and consequently, leaving home would require a considerable and taxing effort. Isolation Type: None - Labs/Radiology CBC w/diff Date: 03/10/18 (weekly saturday) CMP Date: 03/10/18 (weekly saturday) Call or Fax Lab and Imaging Results to: Sarah Ramirez MD [phone] - Follow Up Care Current Providers and Referrals: Ana Luisa Martinez MD [Primary Care Provider] - As per Instructions Sarah Ramirez MD [Medical Doctor] -
[2018-03-05] MEDS ORDERED: ALTEPLASE 2 MG VIAL IVP PRN (13:02)
--- NOTE | 2018-03-05 13:19 | HOSPPROG ---
Hospitalist Progress Note Assessment/Plan: 82 yo M w chronic venous staasis changes admitted w sepsis sepsis: source of infection (leg), bacteremia, tachycardia cellulitis: 2/2 strep ceftriaxone picc in AM bacteremia: echo unremarkable no murmur or peripheral embolic phenomena ID to see repeat cx neg afebrile proph: lmwh dispo: inpt Subjective: CASE D/W DR MCKEON Objective: Vital Signs Temp Pulse Resp BP Pulse Ox 36.9 C 55 L 16 114/69 92 03/05/18 11:10 03/05/18 11:10 03/05/18 11:10 03/05/18 11:10 03/05/18 11:10 Laboratory Results 03/04/18 09:38 03/03/18 04:50 03/04/18 03/05/18 03/06/18 05:59 05:59 05:59 Intake Total 350 Balance 350 PT 14.1 SEC (12.0-15.0) 03/02/18 20:43 INR 1.07 (0.83-1.16) 03/02/18 20:43 - Physical Exam Constitutional: no apparent distress, appears nourished Eyes: PERRL, anicteric sclera Ears, Nose, Mouth, Throat: moist mucous membranes, hearing normal Cardiovascular: regular rate and rhythym, no murmur, rub, or gallop Respiratory: no respiratory distress, no rales or rhonchi Gastrointestinal: normoactive bowel sounds, soft, non-tender abdomen Genitourinary: no bladder fullness, No liriano in urethra Skin: warm, normal color, other (celulitis improved) Musculoskeletal: full muscle strength Neurologic: AAOx3 ICD10 Worksheet Patient Problems: Problems Problem Status Onset Fever Acute Sepsis Acute Anemia, iron deficiency Acute Cellulitis Acute
--- NOTE | 2018-03-05 16:23 | ASMTCMCOM ---
CM Note CM Note Notes: Spoke with pt's son, pt needs IV abx for about 2 weeks. CM sent referral to [facility], unclear if pt has coverage. Celeste at [facility] will call CM with cost to pt. CM explained to son and may be willing to bring pt to outpt infusion if no coverage. BENTON also notified Sima [phone], at [facility], she is also uncertain if their facility can handle that. Pt needs to be evaluated before returning. Date Signed: 03/05/2018 04:22 PM Electronically Signed By:Mei Juárez RN
--- NOTE | 2018-03-05 16:51 | ASMTCMCOM ---
CM Note CM Note Notes: Received call from Susy at [facility], she states that pt not allowed to come back if he has any kind of IV, will have to go to SNF for IV abx. Susy was going to let son know, CM will f/u. Date Signed: 03/05/2018 04:50 PM Electronically Signed By:Mei Juárez RN
--- NOTE | 2018-03-05 17:41 | ASMTCMCOM ---
CM Note CM Note Notes: Spoke with pt's son, he spoke w/Susy at [facility]. Pt can go to [facility], will have to pay for room and board. CM clarified with son that if he went to another SNF, it would be covered by Medicare. Son spoke with sister and they decided to stay with plan at [facility]. Pt's son will transport him tomorrow at co, MD notified. [place] Plan: [facility] Date Signed: 03/05/2018 05:40 PM Electronically Signed By:Mei Juárez RN
[2018-03-06] MEDS: LEVOTHYROXINE 75 MCG TAB PO SCH (05:12)
[2018-03-06 07:29] VITALS: BP 110/71
[2018-03-06] MEDS: TAMSULOSIN HCL 0.4 MG CAP PO SCH (08:52)
[2018-03-06] MEDS: ENOXAPARIN 40 MG/0.4 ML SYR SC SCH (08:52)
[2018-03-06] MEDS: PANTOPRAZOLE SODIUM 40 MG TAB PO SCH (08:52)
[2018-03-06] MEDS: ASPIRIN EC 81 MG TAB PO SCH (08:52)
[2018-03-06] MEDS ORDERED: cefTRIAXone 2 GM in STERILE WATER INJ 20 ML IV SCH (09:00)
--- NOTE | 2018-03-06 10:40 | HOSPPROG ---
Hospitalist Progress Note Assessment/Plan: 82 yo M w chronic venous staasis changes admitted w sepsis sepsis: source of infection (leg), bacteremia, tachycardia cellulitis: 2/2 strep ceftriaxone picc in AM bacteremia: echo unremarkable no murmur or peripheral embolic phenomena ID to see repeat cx neg afebrile proph: lmwh dispo: home to [facility] today > 30 minutes on dc Subjective: repeat blood cx neg Objective: Vital Signs Temp Pulse Resp BP Pulse Ox 36.6 C 63 16 110/71 92 03/06/18 07:27 03/06/18 07:27 03/06/18 07:27 03/06/18 07:27 03/06/18 07:27 Laboratory Results 03/04/18 09:38 03/03/18 04:50 03/05/18 03/06/18 03/07/18 05:59 05:59 05:59 Intake Total 720 Balance 720 PT 14.1 SEC (12.0-15.0) 03/02/18 20:43 INR 1.07 (0.83-1.16) 03/02/18 20:43 - Physical Exam Constitutional: no apparent distress, appears nourished Eyes: PERRL, anicteric sclera Ears, Nose, Mouth, Throat: moist mucous membranes, hearing normal Cardiovascular: regular rate and rhythym, no murmur, rub, or gallop Respiratory: no respiratory distress, no rales or rhonchi Gastrointestinal: normoactive bowel sounds, soft, non-tender abdomen Genitourinary: no bladder fullness, liriano in urethra Skin: warm, normal color Musculoskeletal: full muscle strength ICD10 Worksheet Patient Problems: Problems Problem Status Onset Fever Acute Sepsis Acute Anemia, iron deficiency Acute Cellulitis Acute
--- NOTE | 2018-03-06 10:43 | PDIAF ---
- Diagnosis Diagnosis: GAS bacteremia and LLE cellulitis Code Status: Full Code - Medication Management Discharge Medications: Medications to Continue on Transfer Levothyroxine Sodium [Synthroid] 75 mcg PO DAILY@02/16/13 [Last Taken ] Tamsulosin HCl [Flomax 0.4 MG (*)] 0.4 mg PO DAILY@02/16/13 [Last Taken 02/22] Acetaminophen [Tylenol 325mg (*)] 650 mg PO Q4HRS PRN 07/04/17 [Last Taken Unknown] Aspirin EC [Aspirin EC 81 mg (*)] 81 mg PO DAILY@07/04/17 [Last Taken Unknown ] Furosemide [Lasix 40 MG (*)] 40 mg PO DAILY@07/04/17 [Last Taken Unknown] Herbals/Supplements -Info Only 1 each PO DAILY 07/04/17 [Last Taken Unknown] Magnesium Hydroxide [Milk of Magnesia] 30 ml PO DAILY PRN 07/04/17 [Last Taken Unknown] Pantoprazole Sodium [Protonix 40mg (*)] 40 mg PO DAILY@07/04/17 [Last Taken Unknown] Polyethylene Glycol 3350 [Miralax 17 gm (*)] 17 gm PO DAILY PRN 07/04/17 [Last Taken Unknown] Potassium Cl [Klor-Con 20 meq (*)] 20 meq PO DAILY@07/04/17 [Last Taken Unknown] Sennosides/Docusate Sodium [Senna-Docusate Sodium Tablet] 1 each PO BID PRN 09/10 [Last Taken Unknown] Diclofenac Sodium 1% [Voltaren Gel (*)] 2 gm TP BID PRN 03/02/18 [Last Taken Unknown] Ibuprofen [Motrin (*)] 200 mg PO Q8HRS PRN 03/02/18 [Last Taken Unknown] Nystatin [Mycostatin Cream (RX)] 1 patricia TP TID PRN 03/02/18 [Last Taken Unknown] Polyethylene Glycol 3350 [Miralax 17 gm (*)] 17 gm PO Q2D 03/02/18 [Last Taken Unknown] Triamcinolone 0.1% [Triamcinolone 0.1% Cream (*)] 1 patricia TP BID PRN 03/02/18 [ Last Taken Unknown] Sales Representative Publications Antibiotics: ceftriaxone 2gm IV daily Alf Antibiotic Stop Date: 03/17/18 Discharge Medications: Refer to the Discharge Home Medication list for PRN reason. PICC Care - Routine: Yes - Orders Services needed: Home Care, Registered Nurse Home Care Face to Face: I certify that this patient was under my care and that I had the required [id number] encounter meeting the encounter requirements on the discharge day. My findings support the fact that the patient is homebound as defined in Home Care Face to Face Continued: CMS Chapter 7 Medicare Benefits Manual 30.1.1 , The condition of the patient is such that there exists a normal inability to leave home and consequently, leaving home would require a considerable and taxing effort. Isolation Type: None - Labs/Radiology CBC w/diff Date: 03/10/18 (weekly saturday) CMP Date: 03/10/18 (weekly saturday) Call or Fax Lab and Imaging Results to: Sarah Ramirez MD [phone] - Follow Up Care Current Providers and Referrals: Ana Luisa Martinez MD [Primary Care Provider] - As per Instructions Sarah Ramirez MD [Medical Doctor] -
--- NOTE | 2018-03-06 11:17 | PDIAF ---
- Diagnosis Diagnosis: GAS bacteremia and LLE cellulitis Code Status: Full Code - Medication Management Discharge Medications: Medications to Continue on Transfer Levothyroxine Sodium [Synthroid] 75 mcg PO DAILY@02/16/13 [Last Taken ] Tamsulosin HCl [Flomax 0.4 MG (*)] 0.4 mg PO DAILY@02/16/13 [Last Taken 02/22] Acetaminophen [Tylenol 325mg (*)] 650 mg PO Q4HRS PRN 07/04/17 [Last Taken Unknown] Aspirin EC [Aspirin EC 81 mg (*)] 81 mg PO DAILY@07/04/17 [Last Taken Unknown ] Furosemide [Lasix 40 MG (*)] 40 mg PO DAILY@07/04/17 [Last Taken Unknown] Herbals/Supplements -Info Only 1 each PO DAILY 07/04/17 [Last Taken Unknown] Magnesium Hydroxide [Milk of Magnesia] 30 ml PO DAILY PRN 07/04/17 [Last Taken Unknown] Pantoprazole Sodium [Protonix 40mg (*)] 40 mg PO DAILY@07/04/17 [Last Taken Unknown] Polyethylene Glycol 3350 [Miralax 17 gm (*)] 17 gm PO DAILY PRN 07/04/17 [Last Taken Unknown] Potassium Cl [Klor-Con 20 meq (*)] 20 meq PO DAILY@07/04/17 [Last Taken Unknown] Sennosides/Docusate Sodium [Senna-Docusate Sodium Tablet] 1 each PO BID PRN 09/10 [Last Taken Unknown] Diclofenac Sodium 1% [Voltaren Gel (*)] 2 gm TP BID PRN 03/02/18 [Last Taken Unknown] Ibuprofen [Motrin (*)] 200 mg PO Q8HRS PRN 03/02/18 [Last Taken Unknown] Nystatin [Mycostatin Cream (RX)] 1 patricia TP TID PRN 03/02/18 [Last Taken Unknown] Polyethylene Glycol 3350 [Miralax 17 gm (*)] 17 gm PO Q2D 03/02/18 [Last Taken Unknown] Triamcinolone 0.1% [Triamcinolone 0.1% Cream (*)] 1 patricia TP BID PRN 03/02/18 [ Last Taken Unknown] Legal Associate Antibiotics: ceftriaxone 2gm IV daily Nursing Home Antibiotic Stop Date: 03/17/18 Discharge Medications: Refer to the Discharge Home Medication list for PRN reason. PICC Care - Routine: Yes - Orders Services needed: Home Care, Registered Nurse, Certified Triage Rn, Physical Therapy, Occupational Therapy Home Care Face to Face: I certify that this patient was under my care and that I had the required [id number] encounter meeting the encounter requirements on the discharge day. My findings support the fact that the patient is homebound as defined in Home Care Face to Face Continued: CMS Chapter 7 Medicare Benefits Manual 30.1.1 , The condition of the patient is such that there exists a normal inability to leave home and consequently, leaving home would require a considerable and taxing effort. Isolation Type: None - Labs/Radiology CBC w/diff Date: 03/10/18 (weekly saturday) CMP Date: 03/10/18 (weekly saturday) Call or Fax Lab and Imaging Results to: Sarah Ramirez MD [phone] - Follow Up Care Current Providers and Referrals: Ana Luisa Martinez MD [Primary Care Provider] - As per Instructions Sarah Ramirez MD [Medical Doctor] -
--- NOTE | 2018-03-06 11:21 | PDIAF ---
- Diagnosis Diagnosis: GAS bacteremia and LLE cellulitis Code Status: Full Code - Medication Management Discharge Medications: Medications to Continue on Transfer Levothyroxine Sodium [Synthroid] 75 mcg PO DAILY@02/16/13 [Last Taken ] Tamsulosin HCl [Flomax 0.4 MG (*)] 0.4 mg PO DAILY@02/16/13 [Last Taken 02/22] Acetaminophen [Tylenol 325mg (*)] 650 mg PO Q4HRS PRN 07/04/17 [Last Taken Unknown] Aspirin EC [Aspirin EC 81 mg (*)] 81 mg PO DAILY@07/04/17 [Last Taken Unknown ] Furosemide [Lasix 40 MG (*)] 40 mg PO DAILY@07/04/17 [Last Taken Unknown] Herbals/Supplements -Info Only 1 each PO DAILY 07/04/17 [Last Taken Unknown] Magnesium Hydroxide [Milk of Magnesia] 30 ml PO DAILY PRN 07/04/17 [Last Taken Unknown] Pantoprazole Sodium [Protonix 40mg (*)] 40 mg PO DAILY@07/04/17 [Last Taken Unknown] Polyethylene Glycol 3350 [Miralax 17 gm (*)] 17 gm PO DAILY PRN 07/04/17 [Last Taken Unknown] Potassium Cl [Klor-Con 20 meq (*)] 20 meq PO DAILY@07/04/17 [Last Taken Unknown] Sennosides/Docusate Sodium [Senna-Docusate Sodium Tablet] 1 each PO BID PRN 09/10 [Last Taken Unknown] Diclofenac Sodium 1% [Voltaren Gel (*)] 2 gm TP BID PRN 03/02/18 [Last Taken Unknown] Ibuprofen [Motrin (*)] 200 mg PO Q8HRS PRN 03/02/18 [Last Taken Unknown] Nystatin [Mycostatin Cream (RX)] 1 patricia TP TID PRN 03/02/18 [Last Taken Unknown] Polyethylene Glycol 3350 [Miralax 17 gm (*)] 17 gm PO Q2D 03/02/18 [Last Taken Unknown] Triamcinolone 0.1% [Triamcinolone 0.1% Cream (*)] 1 patricia TP BID PRN 03/02/18 [ Last Taken Unknown] Jai Alai Player Antibiotics: ceftriaxone 2gm IV daily Care Home Antibiotic Stop Date: 03/17/18 Discharge Medications: Refer to the Discharge Home Medication list for PRN reason. PICC Care - Routine: Yes - Orders Services needed: Registered Nurse, Certified Foreman Or Supervisor And Operator, Physical Therapy, Occupational Therapy Isolation Type: None - Labs/Radiology CBC w/diff Date: 03/10/18 (weekly saturday) CMP Date: 03/10/18 (weekly saturday) Call or Fax Lab and Imaging Results to: Sarah Ramirez MD [phone] - Follow Up Care Current Providers and Referrals: Ana Luisa Martinez MD [Primary Care Provider] - As per Instructions Sarah Ramirez MD [Medical Doctor] -
[2018-03-06] MEDS ORDERED: LIDOCAINE 1% 300 MG/30 ML SDV ONE (12:59)
--- NOTE | 2018-03-06 16:54 | GDS ---
[f rep st] DISCHARGE SUMMARY DISCHARGE DIAGNOSES: 1. Group A streptococcus bacteremia. 2. Left lower extremity cellulitis, presumed secondary to group A streptococcus. 3. Chronic venous stasis changes. 4. History of total knee arthroplasty. HOSPITAL COURSE: Please see admission history and physical by Dr. Carson Morales. The patient was admitted with fevers, found have strep A bacteremia. The source was not clear on admission, but he developed a left lower extremity cellulitis thereafter with no evidence of prosthetic knee involv ement. He received a course of initially vancomycin which was narrowed to cefazolin after it became apparent it was strep. He was initially seen by Dr. Quinones, his surgeon from [facility] who knows him well, thought his wound looked well. The patient is going to receive a course of prolonged IV antib iotics, given his bacteremia. His cultures clear without and he has not had peripheral stigmata of e ndocarditis. /[id number]/MODL
--- NOTE | 2018-03-06 17:19 | ASDISCHSUM ---
Discharge Information Plan Status:SNF Medically Cleared to Leave: Discharge Date:03/06/2018 02:00 PM D/C Disposition:[facility] ADT D/C Disposition:[facility] Facility Projected Discharge Date:03/06/2018 11:00 AM Transportation at D/C:Family Discharge Delay Reason: Follow-Up Date:03/06/2018 11:00 AM Discharge Slot: Final Diagnosis: Placement Information Referral Type:*Home Health Care Services Referral ID:[id number] Provider Name: Address 1: Phone Number: Address 2: Fax Number: City: Selection Factors: State: Referral Type:Home Infusion Referral ID:[id number] Provider Name: Address 1: Phone Number: Address 2: Fax Number: City: Selection Factors: State: Referral Type:*Fdc/SNF Referral ID:[id number] Provider Name:[facility] Address 1:[address] Address 2: City:[place] Selection Factors: State:[place] Patient Contact Information Contact Name:PAUL Relationship:Daughter Address:[place] - SON [phone] City: Alternate Phone: [facility] Code: Email: Financial Information Financial Class:Medicare Advantage Plans Primary Plan Desc:[employer] Primary Plan Number:[id number] Secondary Plan Desc:MILEY/MDR SUPPLEMENT Secondary Plan Number:[id number] Assessment Information LACE LACE Length of stay for Answers: 3 days current admission Acuity / Level of Answers: Yes Care: Did the patient have an inpatient admission? Comorbidities - select Answers: Other Notes: BPH, chronic LE all that apply wounds, venous insufficiency # of Emergency department Answers: 1-2 visits in the last 6 months Score: 8 Date Signed: 03/06/2018 11:45 AM Electronically Signed By:Mei Juárez [facility] Initial CM Assessment Living Arrangements What is your living Answers: Alone arrangement? Who do you live with? Type Of Residence What kind of residence do Answers: Custodial you live in? Type of Residence Facility Name Notes: [facility] Discharge Plan Comments Coordination Status Comments Notes: Pt is a 82 y/o man admitted for sepsis. Therapies have been ordered and awaiting recommendations. Wound care has been consulted. Needs are TBD at this time. CM to follow. Plan: TBD Date Signed: 03/03/2018 12:14 PM Electronically Signed By:BAY [facility] CM Progress Note CM Note CM Note Notes: CM met w/ pt and son for dispo planning. PT is recommending HC. OT is recommending HC vs SNF. Pt and son do not think that SNF is needed at this time. Pt is interested in having HC. Pt does not have a preference on HC agencies as long as it is covered with [employer]. Referral made to [facility]. [facility] is able to accept referral. Margarette from [facility] met w/ pt and son. CM to follow. Plan: [facility], PT, OT, RN Date Signed: 03/04/2018 02:47 PM Electronically Signed By:[facility]Y [facility] CM Progress Note CM Note CM Note Notes: Spoke with pt's son, pt needs IV abx for about 2 weeks. CM sent referral to [facility], unclear if pt has coverage. Celeste at [facility] will call CM with cost to pt. CM explained to son and may be willing to bring pt to outpt infusion if no coverage. BENTON also notified Sima [phone], at [facility], she is also uncertain if their facility can handle that. Pt needs to be evaluated before returning. Date Signed: 03/05/2018 04:22 PM Electronically Signed By:Mei Juárez RN [facility] Progress Note CM Note CM Note Notes: Received call from Susy at [facility], she states that pt not allowed to come back if he has any kind of IV, will have to go to SNF for IV abx. Susy was going to let son know, CM will f/u. Date Signed: 03/05/2018 04:50 PM Electronically Signed By:Mei Juárez RN [facility] Progress Note CM Note CM Note Notes: Spoke with pt's son, he spoke w/Susy at [facility]. Pt can go to [facility], will have to pay for room and board. BENTON clarified with son that if he went to another SNF, it would be covered by Medicare. Son spoke with sister and they decided to stay with plan at [facility]. Pt's son will transport him tomorrow at ma, notified. [place] Plan: [facility] Date Signed: 03/05/2018 05:40 PM Electronically Signed By:Mei Juárez RN Case Management Discharge Plan Note Case Management Discharge Discharge Order Complete? Answers: Yes Followup Appointment 03/07/2018 11:00 AM Patient to Obtain Answers: Other Notes: [facility] Medications Transportation Arranged Answers: Family/Friends Transport will Pick (Date 03/06/2018 01:30 AM & Time) Faxed Final Orders Answers: Yes Agency/Facility Transfer Answers: Yes Report Printed & Faxed to Receiving Agency Family Notified Answers: Yes Discharge Comments Notes: Spoke w/MD, final orders faxed. Sima at [facility] notified and state they will administer IV abx, pt's son to transfer pt to snf. Also notified Sima that pt has a [facility], family will take pt. RN to call report. Date Signed: 03/06/2018 11:43 AM Electronically Signed By:Mei Juárez RN Intervention Information Intervention Type:*IM-Signed Date of Service:03/06/2018 01:54 PM Patient Type:Inpatient Staff Member:Shae Dobbins Hours: Discipline: Severity: Comment:
--- NOTE | 2018-03-11 06:51 | PQFORM ---
PHYSICIAN QUERY FORM Needs Your Response This query form is being sent to you to assure this patient record is coded properly. Please respond to the question below: ZOOLOGY PROFESSOR QUESTION: Dr. Horowitz, On the notes for 03/04 through 03/06, you documented that the patient was admitted with sepsis with the source being the leg (cellulitis). Can this diagnosis be added to the discharge summary? X_Yes No Other Thank you for clarifying, EMILIE Eason HIM Coding INSTRUCTIONS FOR RESPONSE: Answer question by clicking on the "Edit Document" button. Move cursor to area below the stars. When complete, hit "Save." Click on the "Sign" button, then click "Sign" again. Type in your PIN and hit "Enter." MTDD
== END 2018-03-06 14:00 | DRG 872 ==
LOC: OBSVTOIN 21:42 → INTOOBSV 21:42 → F3E 23:05
PROVIDERS: ADMIT Internal Medicine; ATTEND Internal Medicine
PROC: 02HV33Z Insertion of Infusion Device into Superior Vena Cava, Percutaneous Approach (ICD-10-PCS; principal; 2018-03-06)
DX: A40.0 Sepsis due to streptococcus, group A (principal); L03.116 Cellulitis of left lower limb; I87.2 Venous insufficiency (chronic) (peripheral); E03.9 Hypothyroidism, unspecified; E78.5 Hyperlipidemia, unspecified; M54.9 Dorsalgia, unspecified; N40.0 Benign prostatic hyperplasia without lower urinary tract symptoms; Z96.652 Presence of left artificial knee joint
CPT/HCPCS: 96365; 97110-GP; 97116-GP; 97162-GP; 97166-GO; 97530-GO; 97535-GO; C1751; G0378; G8978-GP-CK; G8979-GP-CI; G8987-GO-CJ; G8988-GO-CI; J0696; J1650; J3370

== ENCOUNTER 2018-06-06 11:41 | Inpatient (IN) | payer OTHER ==
[2018-06-06] MEDS ORDERED: NS 500 ML IV ONE ×2 (12:05→13:01)
--- NOTE | 2018-06-06 12:13 | CPEKG ---
Heart Rate: 87 RR Interval: 690 P-R Interval: 228 QRSD Interval: 110 QT Interval: 356 QTC Interval: 429 P Hull: 34 QRS Hull: -17 T Wave Hull: 2 EKG Severity - ABNORMAL ECG - EKG Impression: SINUS RHYTHM EKG Impression: FIRST DEGREE AV BLOCK EKG Impression: INCOMPLETE RIGHT BUNDLE BRANCH BLOCK Electronically Signed By: Aryan Carrillo 06-Jun-2018 14:38:07
--- NOTE | 2018-06-06 12:13 | EDPHY ---
H & P Stated Complaint: ams today . daughter suspects heat stroke. 89f at assisted living Time Seen by Provider: 06/06/18 11:53 HPI/ROS: This patient fell asleep in the sun in a chair outside his assisted living facility this morning and was found somnolent and hot to touch in the sun. His daughter explains that she came to pick him up to driving to a wound care appointment to 10:30 a.m. And found him in a chair in the sun drooling and initially somnolent. She helped him inside and noticed that he was weak with his walking. He is found have a temperature of 102 degrees at the assisted care facility where they presumed he had heat exhaustion and start treating him with ice packs and oral hydration prior to arrival here by private vehicle driven by his daughter. Daughter notes that he has improved and that his mentation is now at baseline per her. Patient also reports that he felt lightheaded earlier and lightheadedness is now resolved. ROS: Constitutional: The patient had no fever this morning prior to being outside. He admits fatigue currently. HEENT: No recent URI symptoms or other complaints pulmonary: Dry cough over the past 24 hr. No dyspnea. Cardiovascular: Lightheaded prior to arrival now resolved. No chest pain. GI: He denies any abdominal pain, nausea or vomiting : No dysuria, frequency urgency. No testicular pain or swelling Integumentary: Chronic wounds to bilateral lower extremities. His daughter reports that these have improved significantly over the past year and a half with wound treatment. Neuro: He denies any headache. No focal numbness tingling weakness. He does 10 to lean his head toward the right side since a"mini-stroke"a year to ago per daughter. They appreciate no new focal neuro changes in this patient today. Endocrine: Negative Complete review of symptoms otherwise negative Source: Patient, Family (Patient is accompanied by her daughter and granddaughter who elaborate on details of history.) Exam Limitations: No limitations - Personal History Current Tetanus Diphtheria and Acellular Pertussis (TDAP): Yes Tetanus Vaccine Date: 11-02 - Medical/Surgical History PMH: Chronic venous insufficiency to lower extremities Neuropathy bilateral lower extremities Chronic leg wounds left more than right Prior cellulitis left lower extremity June of 2017 Hx Asthma: No Hx Chronic Respiratory Disease: No Hx Diabetes: No Hx Cardiac Disease: No Hx Renal Disease: No Hx Cirrhosis: No Hx Alcoholism: No Hx HIV/AIDS: No Hx Splenectomy or Spleen Trauma: No Other PMH: hypothyroid,chronic back pain,hyperlipedemia, osteoarthritic hip and shoulder pain, colon cancer. back surg l4,l5; - Family History Significant Family History: No pertinent family hx - Social History Smoking Status: Former smoker Alcohol Use: None Drug Use: None - Physical Exam Exam: Initial vital signs notable for temperature of 102 degrees, hypoxic to 89% on room air General Appearance: Alert, no distress. Eyes: Pupils equal and round no pallor or injection. ENT, Mouth: Mucous membranes dry. Respiratory: Minimal rales at the left base. Otherwise clear to auscultation. No coughing noted here. Cardiovascular: Regular rate and rhythm. No murmur gallop or rub. Gastrointestinal: Abdomen is soft and nontender, no masses, bowel sounds normal. : No testicular tenderness. No CVA tenderness Neurological: GCS 15 on arrival here. The patient rest with his head tilted to the right but can't straighten his head up 1 asked 2. No focal deficits are appreciated. Skin: The patient has chronic wounds left more than right to bilateral lower extremities. The right leg chronic wound is clean dry intact with mild erythema to the leg but no significant warmth to touch. The left leg wound has purulent foul-smelling discharge without fluctuance-medial aspect of lower leg. The leg is very warm to touch in the erythema extends into the medial thigh. There is no significant posterior calf swelling. Musculoskeletal: Neck is supple nontender. Extremities are symmetrical, full range of motion. Psychiatric: Mood and affect are normal. Patient maintains a sense of humor despite his ailments. DIFFERENTIAL DIAGNOSIS: After history and physical exam differential diagnosis was considered for cellulitis with associated sepsis, pneumonia, heat exhaustion , UTI, Constitutional: Initial Vital Signs Temperature (C) 38.4 C H 06/06/18 11:55 Heart Rate 90 06/06/18 11:55 Respiratory Rate 16 06/06/18 11:55 Blood Pressure 130/82 H 06/06/18 11:55 O2 Sat (%) 89 L 06/06/18 11:55 O2 Delivery Mode Room Air O2 (L/minute) 2 Allergies/Adverse Reactions: Penicillins Allergy (Unknown, Verified 06/06/18 11:54) Home Medications: Medication Instructions Recorded Levothyroxine Sodium [Synthroid] 75 mcg PO DAILY@02/16/13 Tamsulosin HCl [Flomax 0.4 MG (*)] 0.4 mg PO DAILY@02/16/13 Acetaminophen [Tylenol 325mg (*)] 650 mg PO Q4HRS PRN 07/04/17 Aspirin EC [Aspirin EC 81 mg (*)] 81 mg PO DAILY@07/04/17 Furosemide [Lasix 40 MG (*)] 40 mg PO DAILY@07/04/17 Herbals/Supplements -Info Only 1 each PO DAILY 07/04/17 Magnesium Hydroxide [Milk of 30 ml PO DAILY PRN 07/04/17 Magnesia] Pantoprazole Sodium [Protonix 40mg 40 mg PO DAILY@07/04/17 (*)] Polyethylene Glycol 3350 [Miralax 17 gm PO DAILY PRN 07/04/17 17 gm (*)] Potassium Cl [Klor-Con 20 meq (*)] 20 meq PO DAILY@07/04/17 Sennosides/Docusate Sodium 1 each PO BID PRN 07/04/17 [Senna-Docusate Sodium Tablet] Diclofenac Sodium 1% [Voltaren Gel 2 gm TP BID PRN 03/02/18 (*)] Ibuprofen [Motrin (*)] 200 mg PO Q8HRS PRN 03/02/18 Nystatin [Mycostatin Cream (RX)] 1 patricia TP TID PRN 03/02/18 Polyethylene Glycol 3350 [Miralax 17 gm PO Q2D 03/02/18 17 gm (*)] Triamcinolone 0.1% [Triamcinolone 1 patricia TP BID PRN 03/02/18 0.1% Cream (*)] Medical Decision Making - Diagnostics EKG Interpretation: 12 lead EKG performed at 12:11 p.m. Indication lightheadedness a mental status change Reveals sinus rhythm at 87 Intervals: P R of 228, QRS of 110, QTC 429 [place]ak: P of 34, QRS of -70, T of 2 ST segments: Normal throughout Overall assessment sinus rhythm with first-degree AV block and incomplete right bundle branch block. Imaging Results: Imaging Impressions Chest X-Ray 06/06/18 12:07 Impression: 1. Large retrocardiac hiatal hernia. 2. Probable bronchitis/airways disease. 3. No definite pneumonia. Two view chest x-ray: Hiatal hernia, no focal infiltrates appreciated by my interpretation Imaging: I viewed and interpreted images myself ED Course/Re-evaluation: IV normal saline bolus, monitor, nasal cannula O2 with improvement in O2 sat to mid 90s Studies: [place] [address], fingerstick blood sugar shortly after arrival is 110. Basic metabolic panel reveals a bicarb of 21 and glucose of 110. There was a technical problem with the POC lactate machine. Elective laugh be run at the hospital. Blood cultures were also sent and pending. I discussed this case with Margarito Barton, infectious Disease since patient has been seen by infectious disease in the past. He recommends ceftriaxone and vancomycin for treatment of this patient's infection. Ceftriaxone 1 g, Vanco 1 g IV Tylenol 1 g p.o. With temperature down to 99.6 At 1400 the patient's heart rate is as low 80s. On 2 L nasal cannula satting 96 %. He is sitting upright and looking more alert. the patient's nasal cannula O2 is turned down to 1 liter/minute Discussion: Patient with sepsis with soft tissue skin source-infection of left lower chronic leg wound now with left leg cellulitis, wound culture pending. Patient is responding to treatment here with defervesced since, reduction heart rate, reduction in O2 requirement but warrants admission for his sepsis on cellulitis. I counseled the patient and patient's daughter regarding patient's diagnosis and treatment plan. Answered all their questions prior to transfer to the hospital. - Data Points Laboratory Results: 06/06/18 06/06/18 12:14 12:10 POC Sodium 141 mEq/L mEq/L (135-145) POC Potassium 3.6 mEq/L mEq/L (3.3-5.0) POC Chloride 102.0 mEq/L mEq/L (97-110) POC Total CO2 21 mEq/L L mEq/L (22-31) POC BUN 23 mg/dL mg/dL (7-23) POC Creatinine 1.2 mg/dL mg/dL (0.7-1.3) POC Glucose 110 mg/dL H mg/dL 114 mg/dL H mg/dL (70-100) (70-100) POC Calcium 8.7 mg/dL mg/dL (8.5-10.4) Medications Given: Sodium Chloride (Ns) 1,000 mls @ 0 mls/hr IV ONCE ONE; Wide Open PRN Reason: Protocol Stop: 06/06/18 14:01 Last Admin: 06/06/18 14:00 Dose: 1,000 mls Discontinued Medications Acetaminophen (Tylenol) 1,000 mg PO EDNOW ONE Stop: 06/06/18 12:31 Last Admin: 06/06/18 13:23 Dose: 1,000 mg Sodium Chloride (Ns) 500 mls @ 0 mls/hr IV ONCE ONE; Wide Open PRN Reason: Protocol Stop: 06/06/18 12:06 Last Admin: 06/06/18 12:10 Dose: 500 mls Sodium Chloride (Ns) 500 mls @ 0 mls/hr IV ONCE ONE; Wide Open PRN Reason: Protocol Stop: 06/06/18 13:02 Last Admin: 06/06/18 12:55 Dose: 500 mls Ceftriaxone Sodium/Dextrose (Rocephin 1 Gm (Premix)) 50 mls @ 100 mls/hr IV EDNOW ONE PRN Reason: Protocol Stop: 06/06/18 13:37 Last Admin: 06/06/18 13:15 Dose: 50 mls Vancomycin HCl 1 gm/ Sodium (Chloride) 250 mls @ 250 mls/hr IV EDNOW ONE PRN Reason: Protocol Stop: 06/06/18 14:08 Last Admin: 06/06/18 14:00 Dose: 250 mls Point of Care Test Results: CBC CBC Collection Date 06/06/18 CBC Collection Time 12:00 WBC 14.0 RBC 4.92 HGB 15.1 HCT 46.2 PLT 261 Neut # 12.5 Neut 89.2 LYMPH # 0.8 LYMPH 5.9 Other WBC # 0.7 Other WBC 4.9 MCV 93.9 Chemistry 06/06/18 06/06/18 12:14 12:10 POC Sodium 141 mEq/L mEq/L (135-145) POC Potassium 3.6 mEq/L mEq/L (3.3-5.0) POC Chloride 102.0 mEq/L mEq/L (97-110) POC Total CO2 21 mEq/L L mEq/L (22-31) POC BUN 23 mg/dL mg/dL (7-23) POC Creatinine 1.2 mg/dL mg/dL (0.7-1.3) POC Glucose 110 mg/dL H mg/dL 114 mg/dL H mg/dL (70-100) (70-100) POC Calcium 8.7 mg/dL mg/dL (8.5-10.4) Departure - Departure Disposition: [facility] Inpatient Acute Clinical Impression: Cellulitis, leg Qualifiers: Laterality: left Qualified Code(s): L03.116 - Cellulitis of left lower limb Sepsis Qualifiers: Sepsis type: sepsis due to unspecified organism Qualified Code(s): A41.9 - Sepsis, unspecified organism Clinical Impression: (Ruled Out): Sepsis affecting skin Condition: Fair Referrals: Mauricio Feliciano MD [Primary Care Provider] - As per Instructions
[2018-06-06] MEDS ORDERED: ACETAMINOPHEN 500 MG TAB PO ONE (12:30)
[2018-06-06] MEDS ORDERED: VANCOMYCIN 1 GM in NS 250 ML IV ONE (13:09)
[2018-06-06] MEDS ORDERED: NS 1,000 ML IV ONE (14:00)
[2018-06-06] MEDS ORDERED: ACETAMINOPHEN 325 MG TAB PO PRN (16:40)
[2018-06-06] MEDS ORDERED: ONDANSETRON DISINTEGRATING 4 MG TAB PO PRN (16:40)
[2018-06-06] MEDS ORDERED: ONDANSETRON 4 MG/2 ML VIAL IVP PRN (16:40)
[2018-06-06] MEDS ORDERED: NYSTATIN 15 GM CR TUBE TP PRN (16:50)
[2018-06-06] MEDS ORDERED: MAGNESIUM HYDROXIDE 30 ML UDCUP PO PRN (16:50)
[2018-06-06] MEDS ORDERED: CEPACOL LOZENGE PO PRN (16:50)
[2018-06-06] MEDS ORDERED: POLYETHYLENE GLYCOL 3350 17 GM PKT PO PRN (16:50)
[2018-06-06] MEDS ORDERED: SENNOSIDES/DOCUSATE SODIUM TAB PO PRN (16:50)
[2018-06-06] MEDS ORDERED: guaiFENesin 200 MG/10 ML UDL PO PRN (16:50)
[2018-06-06] MEDS ORDERED: TRIAMCINOLONE 0.1% 15 GM CRTUBE TP PRN (16:50)
[2018-06-06 17:09] LABS: PLATELET COUNT 250 10^3/uL (150-400)
[2018-06-06] MEDS ORDERED: DICLOFENAC SODIUM 1% 100 GM GEL TP PRN (17:15)
--- NOTE | 2018-06-06 17:26 | GHP ---
[f rep st] HISTORY AND PHYSICAL DATE OF ADMISSION: 06/06/2018 CHIEF COMPLAINT: Brought in for heat stroke; however, found to have cellulitis. HISTORY OF PRESENT ILLNESS: This is an 83-year-old man whose daughter found him asleep in the sun to day. He was confused, drooling at the time; thus, she brought him in to [facility]. When he arrived at [facility] , he was noted to have a fever to 38.4. This was initially attributed to heat stroke. He does have some chronic lower extremity wounds for which he recently received a 10-day course of Ancef. He was also admitted to this hospital in February for group A strep bacteremia thought due to these wounds. Wh en his legs were unwrapped at [facility], he was noted to have a lower extremity cellulitis. He is, thus, b eing admitted. He has not noted any fevers at home. Everything else has been normal. He follows in the wound care clinic daily. He has been seeing Dr. Ramirez there. He has also followed with Dr. Eliezer cameron in the past. PAST MEDICAL/SURGICAL HISTORY: 1. Chronic lower extremity wounds due to venous insufficiency. 2. BPH. 3. Mild cognitive impairment. 4. History of bacteremia due to cellulitis. 5. History of a left-sided TKA. MEDICATIONS: Please see medication reconciliation. ALLERGIES: Penicillin. SOCIAL HISTORY: Lives at [place]. FAMILY HISTORY: Reviewed and noncontributory. REVIEW OF SYSTEMS: A 10-point review of systems is conducted and is negative except per HPI. PHYSICAL EXAM: VITAL SIGNS: Initial vitals show blood pressure of 130/82, heart rate 90, respiratio n rate 16, saturating 87% on room air. Temperature is 38.4. GENERAL: The patient is a pleasant man who is resting comfortably in bed. He is seen with his daughter present. HEENT: Shows him to be n ormocephalic, atraumatic. CARDIOVASCULAR: Shows a regular rate and rhythm. He does have a 2/6 syst olic murmur. PULMONARY: Shows lungs clear to auscultation bilaterally. ABDOMEN: Soft, nontender, nondistended. SKIN: Shows no rash. : No Kamara. NEUROLOGIC: Shows him to be alert and oriented x3. He is moving all extremities. PSYCHIATRIC: Shows a normal mood and affect. EXTREMITIES: Tiffany w his left lower extremity to have a chronic wound with some mild pinkish erythema surrounding this. He has chronic venous stasis changes. Just distal to the knee, he has a notable area of erythema, w hich is warm and mildly tender to palpation. LABS: 1. Basic metabolic panel is relatively unremarkable. His creatinine is 1.2. I am not seeing a CBC, although I believe this was present on the chart previously. 2. I reviewed his chart including his last admission for bacteremia. 3. I personally viewed and interpreted his chest x-ray. This shows no acute cardiopulmonary abnorma lity. 4. I personally viewed and interpreted his EKG. This shows a first-degree AV block. It also shows an incomplete right bundle branch block. I compared this to his previous EKG from February. Right bund le was not present, though it was similar on EKG on February 23, 2015. I believe his AV block has been p resent before. IMPRESSION AND PLAN: 1. Lower extremity cellulitis: Dr. Barton has recommended Rocephin and vancomycin; I will continue these. Blood cultures have been drawn. We will need to closely follow his response to antibiotics a nd follow his blood cultures. He has a history of group A strep bacteremia due to cellulitis. 2. EKG abnormalities: I believe that the AV block is new. Right bundle branch block has been prese nt before. Certainly would be concerned about endocarditis if his blood cultures from today grow an organism. I placed him on telemetry. We will repeat an EKG in the morning. 3. Sepsis: He had a white count of 14,000, as well as a fever. This is in the setting of a celluli tis. He has received a normal saline bolus. We will follow him carefully. 4. Mild cognitive impairment: He may have some problem with sundowning while he is here. We will a ttempt nonpharmacologic measures. 5. Benign prostatic hypertrophy: We will continue his Flomax. 6. Gastroesophageal reflux disease: We will continue his Protonix. 7. Code status is do not resuscitate. This was discussed with him and his daughter. MOLST form was reviewed. 8. His son is his MDPOA. /[id number]/MODL
[2018-06-07] MEDS ORDERED: VANCOMYCIN 1 GM in NS 250 ML IV SCH (01:00)
[2018-06-07 04:54] LABS: PLATELET COUNT 197 10^3/uL (150-400)
[2018-06-07] MEDS: LEVOTHYROXINE 75 MCG TAB PO SCH (05:40)
--- NOTE | 2018-06-07 08:42 | PDMN ---
Medical Necessity Medical necessity: est los>2mn for LE cellulitis, sepsis w/fever &leukocytosis, and abn EKG; admit for tele, IV abx, follow cx's, r/o endocarditis; comorbid cognition impairment, GERD, hx group A strep bacteremia r/t cellulitis; per order and H&P 06/06/18
[2018-06-07] MEDS: ENOXAPARIN 40 MG/0.4 ML SYR SC SCH (08:51)
[2018-06-07] MEDS: PANTOPRAZOLE SODIUM 40 MG TAB PO SCH (08:52)
[2018-06-07] MEDS: ASPIRIN EC 81 MG TAB PO SCH (08:52)
[2018-06-07] MEDS: POTASSIUM CL 20 MEQ TAB PO SCH (08:52)
[2018-06-07] MEDS: FUROSEMIDE 40 MG TAB PO SCH (08:52)
[2018-06-07] MEDS: TAMSULOSIN HCL 0.4 MG CAP PO SCH (08:52)
--- NOTE | 2018-06-07 10:09 | ASMTCMCOM ---
CM Note CM Note Notes: CM reviewing Pt's chart for D/C planning. Pt is an 83 y/o male whose daughter found him asleep in the sun yesterday. He was confused and drooling at the time. When his wounds that were treated during a previous hospitalization were exposed cellulitis was observed. He has mild cognitive impairment and may be prone to ing when here. His daughter's name is Keshia, #[phone] and [phone]. PT and OT ordered. OT eval recommending Assisted Living Facility and home care. CM to follow. D/C Plan: TBD Date Signed: 06/07/2018 10:08 AM Electronically Signed By:Chen Vaughan
[2018-06-07] MEDS ORDERED: NS 1,000 ML IV SCH (12:30)
[2018-06-07] MEDS ORDERED: VANCOMYCIN HCL/NORMAL SALINE 250 ML IV SCH (13:00)
--- NOTE | 2018-06-07 16:43 | HOSPPROG ---
Hospitalist Progress Note Assessment/Plan: The patient is a 83-year-old male with PMH venous stasis dermatitis w/ leg wounds who was admitted for recurrent sepsis secondary to venous stasis wound/ cellulitis of lower extremity. ASSESSMENT/PLAN: Bacteremia with Strep Pyogenes Left lower extremity wound with infection - polymicrobial Venous stasis ulcers/dermatitis BPH Mild cognitive impairment History of left side TKA -IV Abx - I have discussed case with the infectious disease specialist and discussed with the patient's son as well. -if patient continues to do well, may consider to discharge [facility] for continued IV Abx. -IV maintenance fluids for hypotension x 1L. -Wound care. VTE prophylaxis: Code Status: DNR or Full Status: Inpatient for greater than 2 midnight stay. Disposition: [facility] with discharge anticipated in the next 1-2 days to nursing facility ____ SUBJECTIVE: Patient feels well, denies any acute problems. OBJECTIVE: Physical Exam: General: The patient is a male who is alert and in no acute distress. HEENT: normocephalic, extraocular movements intact, conjunctivae clear. Mucous membranes moist. Neck: trachea midline, no visible masses. CV: +S1/S2, RRR, no MRG. Resp: unlabored, CTAB no RRW. Abd: soft and nondistended. Musculoskeletal: Normal muscle tone/bulk. Neuro: cranial nerves II XII grossly intact. Intact gross motor and sensory function. Psych: Appropriate mood and wanted affect. Skin: no pallor. No petechiae. Dressing over ankles/feet CDI Heme/lymph: + mild peripheral edema at bilateral ankles. Labs/Imaging/Other Tests: Personally reviewed/interpreted. Micro-blood culture grew strep pad knees. Wound culture polymicrobial including MRSA Objective: Vital Signs Temp Pulse Resp BP Pulse Ox 36.8 C 57 L 14 91/55 L 93 06/07/18 15:21 06/07/18 15:21 06/07/18 15:21 06/07/18 15:21 06/07/18 15:21 Laboratory Results 06/07/18 04:15 06/07/18 04:15 06/06/18 06/07/18 06/08/18 05:59 05:59 05:59 Intake Total 2900 400 Output Total 300 175 Balance 2600 225 ICD10 Worksheet Patient Problems: Problems Problem Status Onset Cellulitis, leg Acute Sepsis Acute Anemia, iron deficiency Acute Cellulitis Acute Fever Acute
--- NOTE | 2018-06-07 17:02 | PCMIDPN ---
Assessment/Plan: Assessment: Group a strep bacteremia in a patient with chronic lower extremity open wounds. He presented to the emergency room yesterday with fever and a left lower extremity open wound that looked actively infected. He is currently on ceftriaxone. He did receive a dose of vancomycin. Plan to continue ceftriaxone monotherapy. Wound culture has returned with polymicrobial findings including MRSA. Do not feel that there is cause to cover MRSA given that group a strep is in the blood stream. Plan: 1. Continue IV ceftriaxone. 2. Discontinue vancomycin 3. Follow clinical course. 4. Repeat blood cultures tomorrow. 06/07/18 17:00 06/07/18 17:00 Subjective: Patient is resting in his hospital bed. He has no new particular complaint. Still feels somewhat poor. No fevers since presentation. Objective: Vancomycin # 1 Ceftriaxone # 1 Vital Signs Temp Pulse Resp BP Pulse Ox 36.8 C 57 L 14 91/55 L 93 06/07/18 15:21 06/07/18 15:21 06/07/18 15:21 06/07/18 15:21 06/07/18 15:21 Laboratory Results 06/07/18 04:15 06/07/18 04:15 06/06/18 06/07/18 06/08/18 05:59 05:59 05:59 Intake Total 2900 400 Output Total 300 175 Balance 2600 225 - Physical Exam General Appearance: WD/WN, alert, no apparent distress, non-toxic Respiratory: lungs clear, normal breath sounds, No respiratory distress Cardiac/Chest: regular rate, rhythm, No tachycardia Skin: normal color, warm/dry, No rash Neuro/Psych: alert, normal mood/affect, oriented x 3 ICD10 Worksheet Patient Problems: Problems Problem Status Onset Cellulitis, leg Acute Sepsis Acute Anemia, iron deficiency Acute Cellulitis Acute Fever Acute
[2018-06-08 04:36] LABS: PLATELET COUNT 213 10^3/uL (150-400)
[2018-06-08] MEDS: LEVOTHYROXINE 75 MCG TAB PO SCH (05:22)
[2018-06-08] MEDS ORDERED: POLYETHYLENE GLYCOL 3350 17 GM PKT PO SCH (09:00)
[2018-06-08] MEDS: FUROSEMIDE 40 MG TAB PO SCH (10:05)
[2018-06-08] MEDS: POTASSIUM CL 20 MEQ TAB PO SCH (10:05)
[2018-06-08] MEDS: ASPIRIN EC 81 MG TAB PO SCH (10:06)
[2018-06-08] MEDS: ENOXAPARIN 40 MG/0.4 ML SYR SC SCH (10:06)
[2018-06-08] MEDS: TAMSULOSIN HCL 0.4 MG CAP PO SCH (10:06)
[2018-06-08] MEDS: PANTOPRAZOLE SODIUM 40 MG TAB PO SCH (10:06)
[2018-06-08] MEDS ORDERED: ALTEPLASE 2 MG VIAL IVP PRN (11:36)
--- NOTE | 2018-06-08 13:40 | PDIAF ---
- Diagnosis Diagnosis: Strep Pyogenes Bacteremia, Lower extremity venous stasis w/ wounds Code Status: Do Not Resuscitate - Medication Management Discharge Medications: Medications to Continue on Transfer Levothyroxine Sodium [Synthroid] 75 mcg PO DAILY@06 02/16/13 [Last Taken ] Tamsulosin HCl [Flomax 0.4 MG (*)] 0.4 mg PO DAILY 02/16/13 [Last Taken 02/22/15 ] Acetaminophen [Tylenol 325mg (*)] 650 mg PO Q4HRS PRN 07/04/17 [Last Taken Unknown] Aspirin EC [Aspirin EC 81 mg (*)] 81 mg PO DAILY 07/04/17 [Last Taken Unknown] Furosemide [Lasix 40 MG (*)] 40 mg PO DAILY 07/04/17 [Last Taken Unknown] Magnesium Hydroxide [Milk of Magnesia] 30 ml PO DAILY PRN 07/04/17 [Last Taken Unknown] Pantoprazole Sodium [Protonix 40mg (*)] 40 mg PO DAILY 07/04/17 [Last Taken Unknown] Polyethylene Glycol 3350 [Miralax 17 gm (*)] 17 gm PO DAILY PRN 07/04/17 [Last Taken Unknown] Potassium Cl [Klor-Con 20 meq (*)] 20 meq PO DAILY 07/04/17 [Last Taken Unknown] Sennosides/Docusate Sodium [Senna-Docusate Sodium Tablet] 1 each PO BID PRN 09/10 [Last Taken Unknown] Diclofenac Sodium 1% [Voltaren Gel (*)] 2 gm TP BID PRN 03/02/18 [Last Taken Unknown] Ibuprofen [Motrin (*)] 200 mg PO Q8HRS PRN 03/02/18 [Last Taken Unknown] Nystatin [Mycostatin Cream (RX)] 1 patricia TP TID PRN 03/02/18 [Last Taken Unknown] Polyethylene Glycol 3350 [Miralax 17 gm (*)] 17 gm PO Q2D 03/02/18 [Last Taken Unknown] Triamcinolone 0.1% [Triamcinolone 0.1% Cream (*)] 1 patricia TP BID PRN 03/02/18 [ Last Taken Unknown] Benzocaine/Menthol 15/4 [Cepacol Lozenge] 1 ea PO Q1HR PRN 06/06/18 [Last Taken Unknown] guaiFENesin [Guaifenesin] 200 mg PO Q12HRS PRN 06/06/18 [Last Taken Unknown] cefTRIAXone 1 GM/DEXTROSE [Rocephin 1 gm (Premix)] 1 ml IV DAILY 12 Days bag [Last Taken Unknown] Fpc Antibiotics: Ceftriaxone 1mg IV daily x 12 days Circulation Analyst Antibiotic Stop Date: 06/20/18 Discharge Medications: Refer to the Discharge Home Medication list for PRN reason. PICC Care - Routine: Yes - Orders Services needed: Home Care, Registered Nurse, Certified Hide Selector, Physical Therapy, Occupational Therapy Home Care Face to Face: I certify that this patient was under my care and that I had the required [id number] encounter meeting the encounter requirements on the discharge day. My findings support the fact that the patient is homebound as defined in Home Care Face to Face Continued: [facility] Chapter 7 Medicare Benefits Manual 30.1.1 , The condition of the patient is such that there exists a normal inability to leave home and consequently, leaving home would require a considerable and taxing effort. Isolation Type: Contact Isolation Diet Recommendation: no restrictions on diet Diet Texture: Regular Texture Diet Weigh Patient: weekly Kamara: Not applicable Wound Care Instructions: Daily wound care. Wound care recs from [facility] Wound Care clinic - pt to continue to follow up with wound care clinic as scheduled. - Follow Up Care Current Providers and Referrals: Mauricio Feliciano MD [Primary Care Provider] - follow up in 1 week Margarito Barton MD [Medical Doctor] - follow up in 2 weeks
--- NOTE | 2018-06-08 14:45 | PCMIDPN ---
Assessment/Plan: Assessment: Group a strep bacteremia in a patient with chronic lower extremity open wounds. He presented to the emergency room yesterday with fever and a left lower extremity open wound that looked actively infected. He is currently on ceftriaxone. He did receive a dose of vancomycin. Plan to continue ceftriaxone monotherapy. Wound culture has returned with polymicrobial findings including MRSA. Do not feel that there is cause to cover MRSA given that group a strep is in the blood stream. Plan: 1. Continue IV ceftriaxone. Suspect oral be need for 2 weeks of duration given bacteremia. 2. Repeat blood cultures today. 3. [facility] to [facility] the IV antibiotic course. 06/07/18 17:00 06/07/18 17:00 06/08/18 14:43 Subjective: Patient is sitting up in his chair in his hospital room. He is feeling better than he did yesterday. No fevers or chills. Objective: Ceftriaxone # 2 Vital Signs Temp Pulse Resp BP Pulse Ox 36.4 C 58 L 15 117/77 94 06/08/18 11:28 06/08/18 11:28 06/08/18 11:28 06/08/18 11:28 06/08/18 11:28 Laboratory Results 06/08/18 04:01 06/08/18 04:01 06/07/18 06/08/18 06/09/18 05:59 05:59 05:59 Intake Total 2900 1850 Output Total 300 250 Balance 2600 1600 - Physical Exam General Appearance: WD/WN, alert, no apparent distress, non-toxic Respiratory: lungs clear, normal breath sounds, No respiratory distress Cardiac/Chest: regular rate, rhythm, No tachycardia Skin: normal color, warm/dry, No rash Neuro/Psych: alert, normal mood/affect, oriented x 3 ICD10 Worksheet Patient Problems: Problems Problem Status Onset Cellulitis, leg Acute Sepsis Acute Anemia, iron deficiency Acute Cellulitis Acute Fever Acute
--- NOTE | 2018-06-08 14:56 | ASMTCMCOM ---
CM Note CM Note Notes: Shaniqua would like to hold off until Saturday morning. They will need to get the medications and pump and have papers signed by family. Discharge tomorrow. Date Signed: 06/08/2018 02:56 PM Electronically Signed By:Rachel Stevens LCSW
--- NOTE | 2018-06-08 15:24 | HOSPPROG ---
Hospitalist Progress Note Assessment/Plan: The patient is a 83-year-old male with PMH venous stasis dermatitis w/ leg wounds who was admitted for recurrent sepsis secondary to venous stasis wound/ cellulitis of lower extremity. ASSESSMENT/PLAN: Bacteremia with Strep Pyogenes Left lower extremity wound with infection - polymicrobial Venous stasis ulcers/dermatitis BPH Mild cognitive impairment History of left side TKA -IV Abx - I have discussed case with the infectious disease specialist and discussed with the patient's son as well. -Pt doing well, DC to SNF once he is accepted. -Wound care. -I have discussed the case w/ the pt's daughter and with the ID specialist. VTE prophylaxis: Code Status: DNR or Full Status: Inpatient for greater than 2 midnight stay. Disposition: [facility] with discharge anticipated tomorrow to SNF for IV Abx and ongoing wound care. ____ SUBJECTIVE: Patient feels well, denies any acute problems. OBJECTIVE: Physical Exam: General: The patient is a male who is alert and in no acute distress. HEENT: normocephalic, extraocular movements intact, conjunctivae clear. Mucous membranes moist. Neck: trachea midline, no visible masses. Abd: soft and nondistended. Musculoskeletal: Normal muscle tone/bulk. Neuro: cranial nerves II XII grossly intact. Intact gross motor and sensory function. Psych: Appropriate mood and blunted affect. Skin: no pallor. No petechiae. Dressing over ankles/feet CDI Heme/lymph: + mild peripheral edema at bilateral ankles. Labs/Imaging/Other Tests: Personally reviewed/interpreted. Micro-blood culture grew strep pad knees. Wound culture polymicrobial including MRSA Objective: Vital Signs Temp Pulse Resp BP Pulse Ox 36.4 C 58 L 15 117/77 94 06/08/18 11:28 06/08/18 11:28 06/08/18 11:28 06/08/18 11:28 06/08/18 11:28 Laboratory Results 06/08/18 04:01 06/08/18 04:01 06/07/18 06/08/18 06/09/18 05:59 05:59 05:59 Intake Total 2900 1850 Output Total 300 250 200 Balance 2600 1600 -200 ICD10 Worksheet Patient Problems: Problems Problem Status Onset Cellulitis, leg Acute Sepsis Acute Anemia, iron deficiency Acute Cellulitis Acute Fever Acute
--- NOTE | 2018-06-08 16:47 | WOCRNPDOC ---
WON Advanced Assessment Note - Skin Integrity Problem, Advanced Assess Right Lower Leg Dressing Type: Kerlix Dressing Description: Clean/Dry, Intact Integumentary Issue Intervention: Dressing Changed Yodit Wound Tissue: Hemosiderin Staining, Dry Wound Bed Color: Brown Wound Bed Constitution: Scab Wound Edges: Well Defined Site Measurement - Head-to-Toe Length X Width X Depth (cm): 2.5x1.5xscab Skin Integrity Problem Comment: Skin prep applied to yodit-wound tissue. Silver gel applied to wound bed and then covered with Allevyn Life. If patient does not DC as anticipated, wound care will round again later this week. Right Medial Ankle Dressing Type: Adaptic Touch, Kerlix Dressing Description: Intact, Shadowed Closure Description: Not Approximated Exudate Amount: Moderate Exudate Color: Yellow Exudate Characteristic(s): Serous Integumentary Issue Intervention: Dressing Changed, Silver Gel Applied Yodit Wound Tissue: Blanching, Erythema Wound Bed Color: [place] Wound Bed Constitution: Red/[place] - Non Granular Tissue Wound Edges: Well Defined Site Measurement - Head-to-Toe Length X Width X Depth (cm): 1x1x0.2 Skin Integrity Problem Comment: Wound cleaned with NS and gauze. Silver gel applied to wound bed. Skin prep applied liberally to yodit-wound tissue and covered with Allevyn Life. Patient expected to DC tomorrow to SNF. Wound care orders placed for DC but also advised patient to follow-up at the [facility]. If patient does not DC, wound care will follow-up later this week. Left Medial Ankle Dressing Type: Adaptic Touch, Kerlix Dressing Description: Intact, Shadowed Exudate Color: Yellow Exudate Characteristic(s): Serous Integumentary Issue Intervention: Dressing Changed, Silver Gel Applied Yodit Wound Tissue: Blanching, Erythema Wound Bed Color: [place], Yellow Wound Bed Constitution: Red/[place] - Non Granular Tissue, Mixed Loose & Adhered Slough/Eschar Wound Edges: Well Defined Site Measurement - Head-to-Toe Length X Width X Depth (cm): proximal: 1.2x1x0.2. distal: 3x1.1x0.3 Skin Integrity Problem Comment: Wound beds cleaned thoroughly with NS and gauze. Skin prep applied to yodit-wound tissues and wounds covered with Allevyn Life. Wound care will round later this week if patient does not DC as anticipated.
[2018-06-09] MEDS: LEVOTHYROXINE 75 MCG TAB PO SCH (05:46)
[2018-06-09 07:23] VITALS: BP 87/60
[2018-06-09] MEDS: ENOXAPARIN 40 MG/0.4 ML SYR SC SCH (09:17)
[2018-06-09] MEDS: ASPIRIN EC 81 MG TAB PO SCH (09:17)
[2018-06-09] MEDS: FUROSEMIDE 40 MG TAB PO SCH (09:18)
[2018-06-09] MEDS: PANTOPRAZOLE SODIUM 40 MG TAB PO SCH (09:18)
[2018-06-09] MEDS: TAMSULOSIN HCL 0.4 MG CAP PO SCH (09:19)
[2018-06-09] MEDS: POTASSIUM CL 20 MEQ TAB PO SCH (09:19)
--- NOTE | 2018-06-09 09:33 | PDIAF ---
- Diagnosis Diagnosis: Strep Pyogenes Bacteremia, Lower extremity venous stasis w/ wounds Code Status: Do Not Resuscitate - Medication Management Discharge Medications: Medications to Continue on Transfer Levothyroxine Sodium [Synthroid] 75 mcg PO DAILY@06 02/16/13 [Last Taken ] Tamsulosin HCl [Flomax 0.4 MG (*)] 0.4 mg PO DAILY 02/16/13 [Last Taken 02/22/15 ] Acetaminophen [Tylenol 325mg (*)] 650 mg PO Q4HRS PRN 07/04/17 [Last Taken Unknown] Aspirin EC [Aspirin EC 81 mg (*)] 81 mg PO DAILY 07/04/17 [Last Taken Unknown] Furosemide [Lasix 40 MG (*)] 40 mg PO DAILY 07/04/17 [Last Taken Unknown] Magnesium Hydroxide [Milk of Magnesia] 30 ml PO DAILY PRN 07/04/17 [Last Taken Unknown] Pantoprazole Sodium [Protonix 40mg (*)] 40 mg PO DAILY 07/04/17 [Last Taken Unknown] Polyethylene Glycol 3350 [Miralax 17 gm (*)] 17 gm PO DAILY PRN 07/04/17 [Last Taken Unknown] Potassium Cl [Klor-Con 20 meq (*)] 20 meq PO DAILY 07/04/17 [Last Taken Unknown] Sennosides/Docusate Sodium [Senna-Docusate Sodium Tablet] 1 each PO BID PRN 09/10 [Last Taken Unknown] Diclofenac Sodium 1% [Voltaren Gel (*)] 2 gm TP BID PRN 03/02/18 [Last Taken Unknown] Ibuprofen [Motrin (*)] 200 mg PO Q8HRS PRN 03/02/18 [Last Taken Unknown] Nystatin [Mycostatin Cream (RX)] 1 patricia TP TID PRN 03/02/18 [Last Taken Unknown] Polyethylene Glycol 3350 [Miralax 17 gm (*)] 17 gm PO Q2D 03/02/18 [Last Taken Unknown] Triamcinolone 0.1% [Triamcinolone 0.1% Cream (*)] 1 patricia TP BID PRN 03/02/18 [ Last Taken Unknown] Benzocaine/Menthol 15/4 [Cepacol Lozenge] 1 ea PO Q1HR PRN 06/06/18 [Last Taken Unknown] guaiFENesin [Guaifenesin] 200 mg PO Q12HRS PRN 06/06/18 [Last Taken Unknown] cefTRIAXone 1 GM/DEXTROSE [Rocephin 1 gm (Premix)] 1 ml IV DAILY 12 Days bag [Last Taken Unknown] Shelter Antibiotics: Ceftriaxone 1mg IV daily x 12 days Type Soldering Machine Tender Antibiotic Stop Date: 06/20/18 Discharge Medications: Refer to the Discharge Home Medication list for PRN reason. PICC Care - Routine: Yes - Orders Services needed: Registered Nurse, Certified Hematology Technologist, Physical Therapy, Occupational Therapy Isolation Type: Contact Isolation Diet Recommendation: no restrictions on diet Diet Texture: Regular Texture Diet Weigh Patient: weekly Kamara: Not applicable Wound Care Instructions: Daily wound care. Wound care recs from [facility] Wound Care clinic - pt to continue to follow up with wound care clinic as scheduled. Additional Instructions: Wound care: Please follow-up with the Wound Healing Center for these wounds. They can be reached at: [phone] Keep lower legs well moisturized. You may use the Atrac-Tain Cream provided by the hospital twice a day, or a moisturizer of your choice. Please don't use moisturizer between toes. Please resume orders from outpatient wound healing center and resume appointment schedule tonie. Brie [place]OS[place]O - Follow Up Care Current Providers and Referrals: Mauricio Feliciano MD [Primary Care Provider] - follow up in 1 week Margarito Barton MD [Medical Doctor] - follow up in 2 weeks
--- NOTE | 2018-06-09 09:55 | PDIAF ---
- Diagnosis Diagnosis: Strep Pyogenes Bacteremia, Lower extremity venous stasis w/ wounds Code Status: Do Not Resuscitate - Medication Management Discharge Medications: Medications to Continue on Transfer Levothyroxine Sodium [Synthroid] 75 mcg PO DAILY@06 02/16/13 [Last Taken ] Tamsulosin HCl [Flomax 0.4 MG (*)] 0.4 mg PO DAILY 02/16/13 [Last Taken 02/22/15 ] Acetaminophen [Tylenol 325mg (*)] 650 mg PO Q4HRS PRN 07/04/17 [Last Taken Unknown] Aspirin EC [Aspirin EC 81 mg (*)] 81 mg PO DAILY 07/04/17 [Last Taken Unknown] Furosemide [Lasix 40 MG (*)] 40 mg PO DAILY 07/04/17 [Last Taken Unknown] Magnesium Hydroxide [Milk of Magnesia] 30 ml PO DAILY PRN 07/04/17 [Last Taken Unknown] Pantoprazole Sodium [Protonix 40mg (*)] 40 mg PO DAILY 07/04/17 [Last Taken Unknown] Polyethylene Glycol 3350 [Miralax 17 gm (*)] 17 gm PO DAILY PRN 07/04/17 [Last Taken Unknown] Potassium Cl [Klor-Con 20 meq (*)] 20 meq PO DAILY 07/04/17 [Last Taken Unknown] Sennosides/Docusate Sodium [Senna-Docusate Sodium Tablet] 1 each PO BID PRN 09/10 [Last Taken Unknown] Diclofenac Sodium 1% [Voltaren Gel (*)] 2 gm TP BID PRN 03/02/18 [Last Taken Unknown] Ibuprofen [Motrin (*)] 200 mg PO Q8HRS PRN 03/02/18 [Last Taken Unknown] Nystatin [Mycostatin Cream (RX)] 1 patricia TP TID PRN 03/02/18 [Last Taken Unknown] Polyethylene Glycol 3350 [Miralax 17 gm (*)] 17 gm PO Q2D 03/02/18 [Last Taken Unknown] Triamcinolone 0.1% [Triamcinolone 0.1% Cream (*)] 1 patricia TP BID PRN 03/02/18 [ Last Taken Unknown] Benzocaine/Menthol 15/4 [Cepacol Lozenge] 1 ea PO Q1HR PRN 06/06/18 [Last Taken Unknown] guaiFENesin [Guaifenesin] 200 mg PO Q12HRS PRN 06/06/18 [Last Taken Unknown] cefTRIAXone 1 GM/DEXTROSE [Rocephin 1 gm (Premix)] 1 ml IV DAILY 12 Days bag [Last Taken Unknown] Nursing Home Antibiotics: Ceftriaxone 1mg IV daily Customer Service Correspondence Clerk Antibiotic Stop Date: 06/20/18 Discharge Medications: Refer to the Discharge Home Medication list for PRN reason. PICC Care - Routine: Yes - Orders Services needed: Registered Nurse, Certified Louver Door Assembler, Physical Therapy, Occupational Therapy Isolation Type: Contact Isolation Diet Recommendation: no restrictions on diet Diet Texture: Regular Texture Diet Weigh Patient: weekly Kamara: Not applicable Wound Care Instructions: Daily wound care. Wound care recs from [facility] Wound Care clinic - pt to continue to follow up with wound care clinic as scheduled. Additional Instructions: Wound care: Please follow-up with the Wound Healing Center for these wounds. They can be reached at: [phone] Keep lower legs well moisturized. You may use the Atrac-Tain Cream provided by the hospital twice a day, or a moisturizer of your choice. Please don't use moisturizer between toes. Please resume orders from outpatient wound healing center and resume appointment schedule tonie. Brie [place] - Labs/Radiology CBC w/diff Date: 06/12/18 (weekly q Th) CMP Date: 06/12/18 (weekly q Th) Call or Fax Lab and Imaging Results to: Dr. Barton, - Follow Up Care Current Providers and Referrals: Mauricio Feliciano MD [Primary Care Provider] - follow up in 1 week Margarito Barton MD [Medical Doctor] - 06/20/18 11:00 am
--- NOTE | 2018-06-09 09:59 | PCMIDPN ---
Assessment/Plan: Assessment/Plan: * Group A strep bacteremia associated with skin and soft tissue infection: Clinically improved with antibiotic therapy. No findings of active cellulitis on exam currently. Targeting group A strep primarily recognizing that wound cultures are polymicrobial including MRSA. Plan 2 weeks of ceftriaxone with weekly CBC and CMP. Side effects of ceftriaxone including potential for rash or C difficile colitis were discussed with patient today. Follow-up arranged with Dr. Barton in our office on 06/20/2018. 06/09/18 09:56 Subjective: Patient feels significantly improved. Notes some loose stool. Objective: Vital Signs Temp Pulse Resp BP Pulse Ox 36.5 C 61 16 87/60 L 91 L 06/09/18 07:21 06/09/18 07:21 06/09/18 07:21 06/09/18 07:21 06/09/18 07:21 Laboratory Results 06/08/18 04:01 06/08/18 04:01 06/08/18 06/09/18 06/10/18 05:59 05:59 05:59 Intake Total 1850 700 Output Total 250 250 Balance 1600 450 Ceftriaxone # 3 Microbiology 06/06/18 12:56 Leg - Swab Gram Stain - Final 06/06/18 12:55 Blood Blood Panel (PCR) - Final Strep Pyogenes Group A 06/06/18 12:56 Leg - Swab Wound Culture - Preliminary Streptococcus Pyogenes Grp A MRSA Proteus Mirabilis Escherichia Coli 06/06/18 12:55 Blood Blood Culture - Preliminary 06/06/18 12:55 Blood Streptococcus Pyogenes Grp A 06/06/18 12:00 Blood Blood Culture - Preliminary - Physical Exam General Appearance: alert, no apparent distress EENT: No scleral icterus, No conjunctival petechiae Respiratory: lungs clear, No respiratory distress Cardiac/Chest: regular rate, rhythm Extremities: inflammation (Bilateral lower extremity venous insufficiency changes; left lower leg with resolving erythema more superiorly) Abdomen: non-tender, No distended Skin: other (Chronic stasis ulcerations bilaterally) - Time Spent With Patient Time Spent with Patient: greater than 25 minutes Time Spent with Patient: Greater than 25 minutes spent on this patients care, greater than 50% of time spent counseling, educating, and coordinating care regarding the above mentioned plan. ICD10 Worksheet Patient Problems: Problems Problem Status Onset Cellulitis, leg Acute Sepsis Acute Anemia, iron deficiency Acute Cellulitis Acute Fever Acute
--- NOTE | 2018-06-09 10:10 | GDS ---
[f rep st] DISCHARGE SUMMARY ALL DIAGNOSES: 1. Group A strep bacteremia. 2. Left lower extremity wound/cellulitis. 3. Venous stasis ulcers. 4. Benign prostatic hypertrophy. 5. Mild cognitive impairment. 6. History of left-sided total knee arthroplasty. 7. Sepsis, given his leukocytosis and fever without any evidence of end-organ damage. 8. Non-occlusive right arm PICC associated thrombus HOSPITAL COURSE: An 83-year-old man admitted with fever, leukocytosis, left lower extremity cellulitis, and group A strep bacteremia. He did have a wound culture, which was polymicrobial, including MRSA; however, these were not felt to be infective, more colonizers given the Strep pyogenes bacteremia. This has been targeted with. Rocephin 1 g daily. He is clinically improved. His cellulitis has improved as well. He is stable to be discharged to [facility] today. Plan will be to complete a total of 14 days of IV antibiotics. He will follow up with Dr. Barton of Infectious Disease within 2 weeks. He will need ongoing wound care both at the care home facility, as well as the Wound Care [facility]. Notably, he has reportedly good arterial supply. He has had sclerotherapy for his venous insufficiency as well. Apparently his tourniquet was left up for about 12 hours post PICC placement. There is a pressure injury at the sight of the tourniquet. Ultrasound of the right arm showed a small amount of thrombus at the entry sight of the PICC. I spoke with Dr Milligan who did not recommend that we remove and replace the PICC. I recommend that his right arm be measured daily for at least a week to assure improvement. BILLING: I spent more than 30 minutes on the day of discharge coordinating care. FOLLOWUP: 1. Dr. Barton within 2 weeks. 2. Wound care either at home/care home facility or in the Wound Care Clinic. /[id number]/MODL MTDD
--- NOTE | 2018-06-09 11:04 | WOCRNPDOC ---
WOCRN Advanced Assessment Note - Skin Integrity Problem, Advanced Assess Right Upper Arm Pressure Injury Dressing Type: Open to Air Exudate Amount: Scant Exudate Color: Yellow Exudate Characteristic(s): Serous Elana Wound Tissue: Blanching Elana Wound Swelling: None Wound Bed Color: [place] Wound Bed Constitution: De-roofed Serous Blister Site Odor: None Site Measurement - Head-to-Toe Length X Width X Depth (cm): 37cm circumferencially. 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 There is a blister located on the anterior to lateral aspect that is mostly a roofed serous filled blister with a small area at the anterior aspect that is open and draining serous fluid. There is a very small area that is a DTPI at the medial aspect of the wound. Will order wound gel to the blister area with the entire circumferencial wound to be covered with non- bordered mepilex foam, cling, and a stockinette. Wound care will round again at the end of the week. Brie ESPOSITO in room for care. Left Medial Ankle Dressing Type: [place] Life Dressing Description: Intact, Shadowed Exudate Amount: Minimal Exudate Color: Yellow Exudate Characteristic(s): Serous Integumentary Issue Intervention: Visualized Under Dressing Elana Wound Tissue: Blanching, Macerated, Hemosiderin Staining, Dry Elana Wound Swelling: Mild Wound Bed Color: [place], Red, Yellow Wound Bed Constitution: Red/[place] - Non Granular Tissue, Mixed Loose & Adhered Slough/Eschar Site Odor: None Site Measurement - Head-to-Toe Length X Width X Depth (cm): Proximal 2.5x1.4x0.1. Distal 2.8x0.7x0.4 Extremity Temperature: Cool Skin Integrity Problem Comment: There are two wounds on the medial aspect of the left ankle. Cleansed with NS and gauze. The proximal wound is draining serous fluid, the distal wound is healing with small areas of open wound bed. Will write orders for Vashe in the proximal wound. Possible lymphedema present with +2 pitting edema. (+) stemer on both feet. Dependent rubor. Negative for claudication per patient report. Pulses not palpable. Possible arterial mixed etiology. Measured calf for spandigrips (left measured 42cm). Wound care will round again end of the week. Brie ESPOSITO in room for care. Right Medial Ankle Dressing Type: [place] Life Dressing Description: Clean/Dry, Intact Integumentary Issue Intervention: Visualized Under Dressing Elana Wound Tissue: Blanching, Hemosiderin Staining, Dry Wound Bed Constitution: Red/[place] - Non Granular Tissue Site Odor: None Site Measurement - Head-to-Toe Length X Width X Depth (cm): 1x1x0.2 Skin Integrity Problem Comment: Cleansed wound with NS and gauze. Possible lymphedema present, +2 pitting edema, dependent rubor, calf measured for spandigrips (right measured 39cm). + stemer on feet. Negative claudication per patient report. Pulses not palpable, possible arterial mixed etiology. Will continue wound care orders and will round again at the end of the week. Brie ESPOSITO in room for care. Left Lower Leg Dressing Type: [place] Life Dressing Description: Clean/Dry, Intact Exudate Amount: None Integumentary Issue Intervention: Visualized Under Dressing Elana Wound Tissue: Hemosiderin Staining, Dry Wound Bed Constitution: Scab Wound Edges: Attached, Well Defined Site Odor: None Site Measurement - Head-to-Toe Length X Width X Depth (cm): 2.5x1.5x scab Skin Integrity Problem Comment: Wound located on voss. Wound is currently a scab , will do moist wound therapy. Wound care will round again later in the week.
--- NOTE | 2018-06-09 12:56 | PDIAF ---
- Diagnosis Diagnosis: Strep Pyogenes Bacteremia, Lower extremity venous stasis w/ wounds Code Status: Do Not Resuscitate - Medication Management Discharge Medications: Medications to Continue on Transfer Levothyroxine Sodium [Synthroid] 75 mcg PO DAILY@06 02/16/13 [Last Taken ] Tamsulosin HCl [Flomax 0.4 MG (*)] 0.4 mg PO DAILY 02/16/13 [Last Taken 02/22/15 ] Acetaminophen [Tylenol 325mg (*)] 650 mg PO Q4HRS PRN 07/04/17 [Last Taken Unknown] Aspirin EC [Aspirin EC 81 mg (*)] 81 mg PO DAILY 07/04/17 [Last Taken Unknown] Furosemide [Lasix 40 MG (*)] 40 mg PO DAILY 07/04/17 [Last Taken Unknown] Magnesium Hydroxide [Milk of Magnesia] 30 ml PO DAILY PRN 07/04/17 [Last Taken Unknown] Pantoprazole Sodium [Protonix 40mg (*)] 40 mg PO DAILY 07/04/17 [Last Taken Unknown] Polyethylene Glycol 3350 [Miralax 17 gm (*)] 17 gm PO DAILY PRN 07/04/17 [Last Taken Unknown] Potassium Cl [Klor-Con 20 meq (*)] 20 meq PO DAILY 07/04/17 [Last Taken Unknown] Sennosides/Docusate Sodium [Senna-Docusate Sodium Tablet] 1 each PO BID PRN 09/10 [Last Taken Unknown] Diclofenac Sodium 1% [Voltaren Gel (*)] 2 gm TP BID PRN 03/02/18 [Last Taken Unknown] Ibuprofen [Motrin (*)] 200 mg PO Q8HRS PRN 03/02/18 [Last Taken Unknown] Nystatin [Mycostatin Cream (RX)] 1 patricia TP TID PRN 03/02/18 [Last Taken Unknown] Polyethylene Glycol 3350 [Miralax 17 gm (*)] 17 gm PO Q2D 03/02/18 [Last Taken Unknown] Triamcinolone 0.1% [Triamcinolone 0.1% Cream (*)] 1 patricia TP BID PRN 03/02/18 [ Last Taken Unknown] Benzocaine/Menthol 15/4 [Cepacol Lozenge] 1 ea PO Q1HR PRN 06/06/18 [Last Taken Unknown] guaiFENesin [Guaifenesin] 200 mg PO Q12HRS PRN 06/06/18 [Last Taken Unknown] cefTRIAXone 1 GM/DEXTROSE [Rocephin 1 gm (Premix)] 1 ml IV DAILY 12 Days bag [Last Taken Unknown] [facility] Antibiotics: Ceftriaxone 1mg IV daily [employer]ist Antibiotic Stop Date: 06/20/18 Discharge Medications: Refer to the Discharge Home Medication list for PRN reason. PICC Care - Routine: Yes - Orders Services needed: Registered Nurse, Certified Ampoule Filler And Sealer, Physical Therapy, Occupational Therapy Isolation Type: Contact Isolation Diet Recommendation: no restrictions on diet Diet Texture: Regular Texture Diet Weigh Patient: weekly Kamara: Not applicable Wound Care Instructions: Daily wound care. Wound care recs from [facility] Wound Care clinic - pt to continue to follow up with wound care clinic as scheduled. Additional Instructions: 1. Measure right arm daily; if getting larger, then notify physician, may need repeat UE ultrasound 2. Wound care: Please follow-up with the Wound Healing Center for these wounds. They can be reached at: [phone] Keep lower legs well moisturized. You may use the Atrac-Tain Cream provided by the hospital twice a day, or a moisturizer of your choice. Please don't use moisturizer between toes. Please resume orders from outpatient wound healing center and resume appointment schedule tonie. Brie ESPOSITO Change dressings to left medial ankle every 2 days and PRN. 1. Clean with NS and gauze 2. Soak a 2x2 gauze with Vashe wound cleanser and place it in the wound bed for 10 minutes. 3. Use skin prep for periwound skin 4. Silvasorb gel to wound bed 5. Cover with Optilock dressing or other super absorbent dressing Kyleigh Horan RN, Wound Care Team - Labs/Radiology CBC w/diff Date: 06/12/18 (weekly q Th) CMP Date: 06/12/18 (weekly q Th) Call or Fax Lab and Imaging Results to: Dr. Barton, - Follow Up Care Current Providers and Referrals: Mauricio Feliciano MD [Primary Care Provider] - follow up in 1 week Margarito Barton MD [Medical Doctor] - 06/20/18 11:00 am
--- NOTE | 2018-06-09 14:17 | ASMTCMCOM ---
CM Note CM Note Notes: Pt medically stable for d/c to [facility], pt son to transport. Orders sent in [employer]scripts and confirmed receipt with Kristal at [facility]. MARIA VICTORIA Arceo to call report. Date Signed: 06/09/2018 02:16 PM Electronically Signed By:KOFI Berg
--- NOTE | 2018-06-09 14:18 | ASMTLACE ---
LACE Length of stay for Answers: 3 days current admission Acuity / Level of Answers: Yes Care: Did the patient have an inpatient admission? Comorbidities - select Answers: Other Notes: BPH all that apply # of Emergency department Answers: 0 visits in the last 6 months Score: 7 Date Signed: 06/09/2018 02:17 PM Electronically Signed By:KOFI Berg
--- NOTE | 2018-06-09 15:11 | ASDISCHSUM ---
Discharge Information Plan Status:SNF Medically Cleared to Leave: Discharge Date:06/09/2018 02:57 PM CM D/C Disposition:[facility] ADT D/C Disposition:[facility] Facility Projected Discharge Date:06/08/2018 05:00 PM Transportation at D/C:Family Discharge Delay Reason: Follow-Up Date:06/08/2018 05:00 PM Discharge Slot: Final Diagnosis:Heat Stroke Placement Information Referral Type:*Long Term/SNF Referral ID:[id number] Provider Name:[facility] Address 1:[address] Address 2: City:[place] Selection Factors: State:[place] Patient Contact Information Contact Name:PAUL Relationship:Daughter Address:[phone] City: [place] [facility] Phone: [facility] Code: Email: Financial Information Financial Class:Medicare Primary Plan Desc:MEDICARE INPATIENT Primary Plan Number:[id number] Secondary Plan Desc: Secondary Plan Number: Assessment Information LACE LACE Length of stay for Answers: 3 days current admission Acuity / Level of Answers: Yes Care: Did the patient have an inpatient admission? Comorbidities - select Answers: Other Notes: BPH all that apply # of Emergency department Answers: 0 visits in the last 6 months Score: 7 Date Signed: 06/09/2018 02:17 PM Electronically Signed By:KOFI Berg [facility] CM Progress Note CM Note CM Note Notes: CM reviewing Pt's chart for D/C planning. Pt is an 83 y/o male whose daughter found him asleep in the sun yesterday. He was confused and drooling at the time. When his wounds that were treated during a previous hospitalization were exposed cellulitis was observed. He has mild cognitive impairment and may be prone to owning when here. His daughter's name is Keshia, #[phone] and [phone]. PT and OT ordered. OT eval recommending Assisted Living Facility and home care. CM to follow. D/C Plan: TBD Date Signed: 06/07/2018 10:08 AM Electronically Signed By:Chen Vaughan [facility] CM Progress Note CM Note CM Note Notes: [facility] would like to hold off until Saturday morning. They will need to get the medications and pump and have papers signed by family. Discharge tomorrow. Date Signed: 06/08/2018 02:56 PM Electronically Signed By:Rachel Stevens LCSW [facility] CM Progress Note CM Note CM Note Notes: Pt medically stable for d/c to [facility], pt son to transport. Orders sent in Allscripts and confirmed receipt with Kristal wilder [facility]. MARIA VICTORIA Arceo to call report. Date Signed: 06/09/2018 02:16 PM Electronically Signed By:KOFI Berg Intervention Information
== END 2018-06-09 14:57 | DRG 872 ==
LOC: CED 11:41 → CEDHOLD 13:16 → F3N 15:48
PROVIDERS: ADMIT Student in an Organized Health Care Education/Training Program; ATTEND Student in an Organized Health Care Education/Training Program
PROC: 02HV33Z Insertion of Infusion Device into Superior Vena Cava, Percutaneous Approach (ICD-10-PCS; principal; 2018-06-08)
DX: A40.0 Sepsis due to streptococcus, group A (principal); L03.116 Cellulitis of left lower limb; I87.2 Venous insufficiency (chronic) (peripheral); T82.868A Thrombosis due to vascular prosthetic devices, implants and grafts, initial encounter; G31.84 Mild cognitive impairment of uncertain or unknown etiology; I45.10 Unspecified right bundle-branch block; E03.9 Hypothyroidism, unspecified; E78.5 Hyperlipidemia, unspecified; M16.10 Unilateral primary osteoarthritis, unspecified hip; M19.019 Primary osteoarthritis, unspecified shoulder; K21.9 Gastro-esophageal reflux disease without esophagitis; N40.0 Benign prostatic hyperplasia without lower urinary tract symptoms; Z86.73 Personal history of transient ischemic attack (TIA), and cerebral infarction without residual deficits; Z87.891 Personal history of nicotine dependence; Z66 Do not resuscitate; Z85.038 Personal history of other malignant neoplasm of large intestine; Z96.652 Presence of left artificial knee joint
CPT/HCPCS: 71046-PO; 80048-PO; 96365; 97116-GP; 97161-GP; 97166-GO; 97530-GP; 97535-GO; C1751; G8978-GP-CJ; G8979-GP-CI; G8980-GP-CI; G8987-GO-CJ; G8988-GO-CI; J0696; J1650; J3370

== ENCOUNTER 2019-05-25 11:43 | Emergency (ER) | payer OTHER, MEDICARE | END 2019-05-25 15:17 | disposition home or self-care (01) ==